=== PATIENT | female | born 1975 | race African-American/Black ===

== ENCOUNTER 2022-06-06 05:27 | Emergency (ER) | payer OTHER, SELFPAY ==
[2022-06-06 05:34] VITALS: BP 152/98; PULSE 107; RESP 20; TEMP 36.1; O2SAT 97
--- NOTE | 2022-06-06 05:54 | ED.GENADULT ---
HPI - General Adult General Chief complaint: Upper Respiratory Infection Stated complaint: upper resp Time Seen by Provider: 06/06/22 05:46 History of Present Illness HPI narrative: This is a 46-year-old female presenting ED with chief complaint of URI symptoms. Started 3 days ago she started to have cough congestion and has recently developed right-sided ear pain and fullness. She has a sick child at home. She denies fever but has had some nausea and vomiting. She has been using Mucinex TheraFlu and nasal spray with some relief. Patient is vaccinated against COVID and flu. Related Data Allergies Allergy/AdvReac Type Severity Reaction Status Date / Time diclofenac Allergy Unknown Unknown Verified 07/25/20 10:26 tioconazole Allergy Unknown Unknown Verified 07/25/20 10:26 tomato Allergy Unknown Unknown Verified 07/25/20 10:26 miconazole AdvReac Unknown UNKNOWN Verified 07/25/20 10:26 [facility] Past Medical History Medical History Depression Hypertension Surgical History Surgical History S/P bilateral breast reduction Family History Family History Mother Hypertension Family history of elevated blood lipids Social History Social History Smoking status: Never smoker Second hand tobacco smoke exposure: No Alcohol intake: never Exam Narrative: APPEARANCE: patient is handling 2 sick children during the interview. She appears stressed. Head: Tympanic membrane on the right is bulging with purulent effusion. Left has serous effusion. EYES: EOMI, NOSE: Atraumatic NECK: Trachea midline RESPIRATORY: No increased rate of breathing, CTAB CARDIOVASCULAR: tachycardic ABDOMINAL: Non-distended MUSCULOSKELETAl: No obvious deformities NEURO: Alert. Moving 4/4 extremities SKIN:: Warm, dry. Normal color PSYCHIATRIC: Normal affect Course Vital Signs Vital signs: Vital Signs Temperature 97.0 F L 06/06/22 05:34 Pulse Rate 107 H 06/06/22 05:34 Respiratory Rate 20 06/06/22 05:34 Blood Pressure 152/98 H 06/06/22 05:34 Pulse Oximetry 97 03/17/23 05:34 Oxygen Delivery Room Air 06/06/22 05:34 Temperature 97.0 F L 06/06/22 05:34 Pulse Rate 107 H 06/06/22 05:34 Respiratory Rate 20 06/06/22 05:34 Blood Pressure 152/98 H 06/06/22 05:34 Pulse Oximetry 97 06/06/22 05:34 Oxygen Delivery Room Air 06/06/22 05:34 Medical Decision Making MDM Narrative Medical decision making narrative: -Presentation: 46-year-old female presenting with URI symptoms and right-sided ear pain -DDX includes but is not limited to: viral syndrome, acute otitis media, bullous myringitis -Co-morbidities complicating care: hypertension -Social determinants of health: 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 Dx tests considered but not ordered: None -Procedures: none -Interventions: Motrin, Tylenol, Augmentin -Shared decision making / Disposition: patient has a purulent effusion on the right side. She will be treated for acute otitis media. She can follow up with primary care physician. -RX Augmentin, Zofran, Robitussin Vital Signs Vital Signs: Vital Signs Temperature 97.0 F L 06/06/22 05:34 Pulse Rate 107 H 06/06/22 05:34 Respiratory Rate 20 06/06/22 05:34 Blood Pressure 152/98 H 06/06/22 05:34 Pulse Oximetry 97 06/06/22 05:34 Oxygen Delivery Room Air 06/06/22 05:34 Temperature 97.0 F L 06/06/22 05:34 Pulse Rate 107 H 06/06/22 05:34 Respiratory Rate 20 06/06/22 05:34 Blood Pressure 152/98 H 06/06/22 0
[2022-06-06 06:45] VITALS: BP 131/69; PULSE 84; RESP 18; TEMP 37.2; O2SAT 99
[2022-06-06] MEDS: ONDANSETRON HCL ODT 4 MG TABLET PO (06:45)
[2022-06-06] MEDS: ACETAMINOPHEN 500 MG TABLET 1000 MG PO (06:45)
[2022-06-06] MEDS: guaiFENesin/DEXTROMETHORPHAN 10 ML UDC PO (06:45)
[2022-06-06 06:50] LABS: Influenza A QL RT-PCR Negative (Negative); Influenza B QL RT-PCR Negative (Negative); RSV RNA, RT-PCR Negative (Negative); SARS-CoV-2 RNA PCR Negative
== END 2022-06-06 06:46 | disposition home or self-care (01) ==
PROVIDERS: Emergency Provider Emergency Medicine; PCP Physician Assistant
DX: H66.91 Otitis media, unspecified, right ear (principal); Z20.822 Contact with and (suspected) exposure to COVID-19; I10 Essential (primary) hypertension; F32.A Depression, unspecified
CPT/HCPCS: 87637; 99283; A9270

== ENCOUNTER 2022-08-15 00:33 | Day surgery (SDC) | payer OTHER, SELFPAY ==
[2022-07-29 15:08] VITALS: BMI 40.3
[2022-08-15 09:48] VITALS: BP 153/92; PULSE 69; RESP 16; TEMP 36.1; O2SAT 100
[2022-08-15] MEDS: LACTATED RINGERS 1,000 ML 150 ML IV CONT (10:03)
--- NOTE | 2022-08-15 10:14 | PM.HPGS ---
History of Present Illness History of Present Illness Consent: Risks, benefits, and alternatives have been discussed and questions answered. Patient agrees to proceed with procedure. Chief complaint: neoplasm screening Narrative: Jeanine Hebert is a 46 year old female Presents for screening colonoscopy. Patient's current weight appetite and bowel movements are normal. Patient denies abdominal pain. She has had no bleeding. Family history noncontributory. Patient reports in the past was told she was low in iron. labs in our records reveal her hemoglobin to be adequate stable. Review of Systems Review of Systems: Review of systems noncontributory. [facility] Past Medical History Medical History Depression Hypertension Surgical History Surgical History History of section S/P bilateral breast reduction Family History Family History Mother Hypertension Family history of elevated blood lipids Social History Social History Smoking status: Never smoker Second hand tobacco smoke exposure: No Alcohol intake: never Substance use: never Substance use type: does not use Lack of Transportation: No Lack of Food: Never True Current Housing: I Have Housing Concerned About Future Housing: No Difficulty Paying Gas/Electric Bills: No Difficulty Paying for Meds: No Currently Unemployed: No Education: High School Diploma/GED Difficulty w/ Childcare or Family Care: No Living arrangements: with family Spiritual care concerns: No Meds Home Medications and Allergies Home Medications Medication Instructions Recorded Confirmed Type ezaybhu-tzvkwhjkuuomk-pockgbfi 250 1 tablet PO Q4-6H PRN migraines 06/12/22 08/15/22 History mg-250 mg-65 mg tablet (Excedrin Migraine) escitalopram oxalate 10 mg tablet 10 mg PO DAILY 06/12/22 08/15/22 History fluticasone propionate 50 1 spray intranasal DAILY 06/12/22 08/15/22 History mcg/actuation nasal spray,suspension (Allergy Relief (fluticasone)) levocetirizine 5 mg tablet 5 mg PO DAILY 06/12/22 08/15/22 History omeprazole 10 mg capsule,delayed 10 mg PO DAILY 06/12/22 08/15/22 History release prenat.vits,karley,yjq-yvex-orbmy 1 tablet PO DAILY 06/12/22 08/15/22 History triamcinolone acetonide 0.5 % 1 applic topical DAILY 06/12/22 08/15/22 History topical cream vitamin B12 2,500 mcg-folic acid 1 tablet PO DAILY 06/12/22 08/15/22 History 400 mcg disintegrating tablet amlodipine 5 mg tablet 5 mg PO DAILY 07/29/22 08/15/22 History bupropion HCl 150 mg 24 hr tablet, 150 mg PO DAILY 07/29/22 08/15/22 History extended release fluconazole 150 mg tablet 150 mg PO ONCE PRN vaginitis 07/29/22 08/15/22 History (Diflucan) Allergies Allergy/AdvReac Type Severity Reaction Status Date / Time diclofenac Allergy Unknown Unknown Verified 08/15/22 09:45 tioconazole Allergy Unknown Unknown Verified 08/15/22 09:45 tomato Allergy Unknown Unknown Verified 08/15/22 09:45 miconazole AdvReac Unknown UNKNOWN Verified 08/15/22 09:45 Vital Signs Vital Signs - 24 hr 08/15/22 09:48 Temperature 97.0 F L Pulse Rate 69 Respiratory Rate 16 Blood Pressure 153/92 H Pulse Oximetry 100 Oxygen Delivery Room Air Exam Narrative: Physical exam reveals patient to be alert. Vital signs stable. HEENT exam is unremarkable. Patient is anicteric. Lungs are clear to auscultation and percussion. Heart is without murmur or extra sounds. Abdomen bowel sounds present soft nontender with no organomegaly. Digital external rectal exam is normal.
--- NOTE | 2022-08-15 10:58 | WPDANESEPPF ---
Anes - Initial Pre Proc Eval Procedure: Operation Date: 08/15/22 10:30 Proposed Procedures p Screening Colonoscopy - Alonso Mathur MD Date/Time: 08/15/22 10:58 Surgeon: Alonso Mathur MD Pre Op Diagnosis: neoplasm screening Patient Data Age: 46 Gender: F Height: 1.7 m Weight: 116.1 kg Last Vital Signs Temp 97.0 F L 08/15/22 09:48 Pulse 69 08/15/22 09:48 Resp 16 08/15/22 09:48 BP 153/92 H 08/15/22 09:48 Pulse Ox 100 08/15/22 09:48 O2 Del Method Room Air 08/15/22 09:48 Allergies Allergy/AdvReac Type Severity Reaction Status Date / Time diclofenac Allergy Unknown Unknown Verified 08/15/22 09:45 tioconazole Allergy Unknown Unknown Verified 08/15/22 09:45 tomato Allergy Unknown Unknown Verified 08/15/22 09:45 miconazole AdvReac Unknown UNKNOWN Verified 08/15/22 09:45 Home Medications Medication Instructions Recorded Confirmed Type nanjahd-iikuyohreyoix-qxnwvaoh 250 1 tablet PO Q4-6H PRN migraines 06/12/22 08/15/22 History mg-250 mg-65 mg tablet (Excedrin Migraine) escitalopram oxalate 10 mg tablet 10 mg PO DAILY 06/12/22 08/15/22 History fluticasone propionate 50 1 spray intranasal DAILY 06/12/22 08/15/22 History mcg/actuation nasal spray,suspension (Allergy Relief (fluticasone)) levocetirizine 5 mg tablet 5 mg PO DAILY 06/12/22 08/15/22 History omeprazole 10 mg capsule,delayed 10 mg PO DAILY 06/12/22 08/15/22 History release prenat.vits,karley,soh-rtsl-xarlb 1 tablet PO DAILY 06/12/22 08/15/22 History triamcinolone acetonide 0.5 % 1 applic topical DAILY 06/12/22 08/15/22 History topical cream vitamin B12 2,500 mcg-folic acid 1 tablet PO DAILY 06/12/22 08/15/22 History 400 mcg disintegrating tablet amlodipine 5 mg tablet 5 mg PO DAILY 07/29/22 08/15/22 History bupropion HCl 150 mg 24 hr tablet, 150 mg PO DAILY 07/29/22 08/15/22 History extended release fluconazole 150 mg tablet 150 mg PO ONCE PRN vaginitis 07/29/22 08/15/22 History (Diflucan) Patient hx anesthesia problems: none Family hx anesthesia problems: none Results Review: All pre-operative results and documents have been reviewed as part of the pre-operative evaluation. PMFSH Past Medical History Medical History Depression Hypertension Surgical History Surgical History History of section S/P bilateral breast reduction Family History Family History Mother Hypertension Family history of elevated blood lipids Social History Social History Smoking status: Never smoker Second hand tobacco smoke exposure: No Alcohol intake: never Substance use: never Substance use type: does not use Lack of Transportation: No Lack of Food: Never True Current Housing: I Have Housing Concerned About Future Housing: No Difficulty Paying Gas/Electric Bills: No Difficulty Paying for Meds: No Currently Unemployed: No Education: High School Diploma/GED Difficulty w/ Childcare or Family Care: No Living arrangements: with family Spiritual care concerns: No Anes - Eval Final PreProcedure Day of Procedure 08/15/22 10:58 Patient weight: morbidly obese Heart: regular rate and rhythm Lungs: clear to auscultation Airway: Mallampati scale class III Neurological: alert and oriented Last oral intake: >/= 8 hours ASA classification: III Emergent: no Anesthetic plan: proceed Anesthesia type and monitoring: general GIVS and standard monitoring Results Review: All pre-operative results and documents have been reviewed as part of the pre-operative evaluation. Informed Consent: The patient's anesthetic plan and its attendant risks and benefits were discussed with the patient/family/POA. Questions were solicited and answers provided to
[2022-08-15 11:31] VITALS: BP 137/80; PULSE 63; RESP 21; O2SAT 100
[2022-08-15 11:41] VITALS: BP 133/85; PULSE 61; RESP 17; O2SAT 100
[2022-08-15 11:51] VITALS: BP 149/95; PULSE 60; RESP 20; O2SAT 100
== END 2022-08-15 12:01 | disposition home or self-care (01) ==
PROVIDERS: PCP Physician Assistant; Visit Provider Internal Medicine Gastroenterology
PROC: 0DJD8ZZ Inspection of Lower Intestinal Tract, Via Natural or Artificial Opening Endoscopic (ICD-10-PCS; CPT 45378; principal; 2022-08-15 10:30)
DX: Z12.11 Encounter for screening for malignant neoplasm of colon (principal); K64.8 Other hemorrhoids; K57.30 Diverticulosis of large intestine without perforation or abscess without bleeding; I10 Essential (primary) hypertension
CPT/HCPCS: 45378; J2001; J2704; J7120

== ENCOUNTER 2024-01-18 09:59 | Outpatient (CLI) | payer OTHER, SELFPAY ==
--- NOTE | ~2024-01-18 | US_ITS ---
US pelvic complete w TV Ordering provider: Rogerio Chávez MD History: . N85.2 - Hypertrophy of uterus . Comparison: None. Technique:Transabdominal and endovaginal ultrasound of the pelvis (Doppler ultrasound interrogation techniques used as needed for this exam.) FINDINGS: CERVIX: Nabothian cyst. No UTERUS: Measures 13x 6.6x 6.4 cm in length which is within normal limits and is anteverted. Multiple fibroids with the largest measures 3.3 x 3.4 x 3.5 cm. Another one is noted measuring 2.9 x 1.7 x 3 cm. ENDOMETRIUM: Normal in thickness measuring 13 mm. No endometrial masses, cysts or fluid. CUL DE SAC: Minimal free fluid. RIGHT OVARY: Normal in size measuring 1.7x 2x 1.5 cm. Normal echotexture. Doppler vascular flow prese nt. LEFT OVARY: Normal in size measuring 2.7x 2x 2.8 cm. Normal echotexture. Doppler vascular flow presen t. ADNEXA: Normal. No mass. IMPRESSION: Multiple fibroids. Minimal free fluid in the cul-de-sac. Otherwise, normal pelvic ultrasound. Reviewed, dictated and finalized at location A. IMPRESSION: Multiple fibroids. Minimal free fluid in the cul-de-sac. Otherwise, normal pelv ic ultrasound.
== END 2024-01-18 10:00 | disposition home or self-care (01) ==
LOC: ANHIMG 10:00
PROVIDERS: PCP Physician Assistant; Visit Provider Obstetrics & Gynecology
DX: D25.9 Leiomyoma of uterus, unspecified (principal); N85.2 Hypertrophy of uterus
CPT/HCPCS: 76830; 76856

== ENCOUNTER 2024-05-18 00:04 | Day surgery (SDC) | payer OTHER, SELFPAY ==
--- NOTE | 2024-05-09 08:56 | PC.NURSE ---
Addendum entered by Taylor Hodge RN 05/09/24 08:59: Telephone instructions given to ___Jeanine and asked if any additional questions and then verbalized understanding. Original Note: Report to the Outpatient Waiting Room, entrance under the green pavilion located off [facility], at time _0615 on date __05/18/24 . Planned Procedure Time: .? Time changes happen often and if your time is changed the preop area will call you the afternoon before. - You and your visitor will be asked to self-screen and do not enter if you have any COVID symptoms. Please call surgeon if you need to reschedule. - A mask is optional within the hospital at this time. Patients may have clear liquids (water, carbonated beverages, clear teas, apple juice) until 3 hours prior to surgery with a maximum of 20 ounces. - No food from midnight until time of surgery and no smoking, or chewing tobacco (or any form of nicotine). No chewing gum, candy or mints. - Infants may have breast milk until 4 hours before surgery, infant formula 6 hours prior to surgery. - Children will be allowed to drink immediately following surgery.? If applicable, please bring a bottle or sippy cup to assist with drinking. Juice, water, soda, and popsicles are readily available.? For infants on formula, please bring formula the day of surgery.? Pacifiers are allowed. Take only the following medications with a SIP of water on the morning of surgery: __Amlodipine, Bupropion, and Antibiotics DO NOT STOP ANY OF YOUR OTHER PRESCRIPTION MEDICATIONS PRIOR TO SURGERY EXCEPT THE FOLLOWING Hold all vitamins and supplements for 3 days per anesthesiologist. Please no make-up, nail thai, hairspray, perfume, deodorant, or body powder the day of surgery.? No jewelry (including any body piercings) or valuables the day of surgery, leave them at home.? Please take a shower or bath the night before, or the morning of, surgery with an antibacterial soap.? Wear comfortable, loose fitting clothing.? Children are encouraged to wear pajamas. - Jewelry must be removed prior to entering the operating room.? Rings and piercings that are not removed may be cut off. - The hospital will not accept responsibility for valuables.? - Please leave all valuables, including medications, at home the day of surgery. If you are going home after surgery, a licensed dedicated truck driver must drive you home.? - NO public transportation without another adult if you receive anesthesia. - We recommend that an adult stay with you for 24 hours following discharge. - We also recommend that you do not drive, make important decision, drink alcoholic beverages, or take any drugs that were not prescribed by your health care provider for at least 24 hours after your discharge time. For Pediatric surgeries, we recommend two adults accompany the child home. Follow any additional instructions given to you from your surgeon. Telephone instructions given to and asked if any additional questions and then verbalized understanding. Patient advised to call surgeon office or pre surgery nurse liaison [phone] if any additional questions.
[2024-05-09 09:01] VITALS: BMI 41.6
--- OUTSIDE RECORDS SUMMARY | 2024-05-18 00:10 | XMS_ITS | Clinical Summary ---
Author Organization [facility] Address [address] [place] [address] Care Team Providers Care Seat Nailer Name Role Phone Monico Santana MD Unavailable [phone] Neelima Head Primary Care Provider [phone] Allergies Active Allergy Reactions Criticality Noted Date Comments Tioconazole Swelling Medium 10/23/2017 Vaginal swelling. Tomato Hives,Swelling Medium Medications acetaminophen-asp irin-caffeine (EXCEDRIN MIGRAINE) 250-250-65 mg per tablet Take 1 tablet by mouth every 6 (six) hours as needed Active omeprazole (PriLOSEC) 40 mg capsule Take 1 capsule (40 mg total) by mouth daily 30 capsule 6 Active Additional Information Patient not taking.Reported on 05/05/2024 fluticasone propionate (FLONASE) 50 mcg/actuation nasal spray Administer 1 spray into each nostril daily 1 each 6 Active ergocalciferol (VITAMIN D) 50,000 unit capsule Take 1 capsule (50,000 Units total) by mouth 3 (three) times a week 12 capsule 6 Active Additional Information Patient not taking.Reported on 05/05/2024 ferrous bis-glycinate chelate (IRON BISGLYCINATE CHELATE ORAL) Take 25 mg by mouth daily Active cyanocobalamin (Vitamin B-12) 1,000 mcg tabletIndications :Prevention of Vitamin B12 Deficiency Take 2 tablets (2,000 mcg total) by mouth daily 025 2025 Active amLODIPine (NORVASC) 5 mg tablet Take 1 tablet (5 mg total) by mouth every morning 90 tablet 2 Active escitalopram (LEXAPRO) 20 mg tablet Take 1 tablet (20 mg total) by mouth daily 90 tablet 2 Active traZODone (DESYREL) 50 mg tablet Take 1 tablet (50 mg total) by mouth nightly 90 tablet 2 Active buPROPion XL (WELLBUTRIN XL) 300 mg 24 hr tablet Take 1 tablet (300 mg total) by mouth every morning 90 tablet 2 Active ondansetron ODT (ZOFRAN-ODT) 4 mg disintegrating tablet Take 1 tablet (4 mg total) by mouth every 8 (eight) hours as needed for nausea or vomiting 20 tablet 1 Active triamcinolone (KENALOG) 0.025 % cream Apply topically 2 (two) times a day as needed for rash 80 g Active ondansetron ODT (ZOFRAN-ODT) 4 mg disintegrating tablet Take 1 tablet (4 mg total) by mouth every 8 (eight) hours as needed for nausea or vomiting 2024 Discontinued(R eorder) mv,Ca,min-iron ddtd-UF-skdilk 1 mg iron-66.7 mcg-1,000 mcg tablet Take 1 each by mouth daily 2024 Discontinued vit 60-pvbq-[id number]-dha 27mg iron- 800 mcg-250 mg capsule Take 1 each by mouth 2024 Discontinued triamcinolone (KENALOG) 0.025 % cream Apply 1 application topically 2 (two) times a day as needed 2024 Discontinued(R eorder) levocetirizine (XYZAL) 5 mg tablet Take 1 tablet (5 mg total) by mouth daily 30 tablet 2 023 2024 Discontinued Lactobacillus reuteri 100 million cell tablet,chewable Take by mouth 2024 Discontinued amLODIPine (NORVASC) 5 mg tablet Take 1 tablet (5 mg total) by mouth every morning 30 tablet 3 023 2024 Discontinued(R eorder) cyanocobalamin (Vitamin B-12) 1,000 mcg tabletIndications :Prevention of Vitamin B12 Deficiency Take 2 tablets (2,000 mcg total) by mouth daily 60 tablet 3 023 2024 Discontinued(R eorder) escitalopram (LEXAPRO) 20 mg tablet Take 1 tablet (20 mg total) by mouth daily 30 tablet 6 024 2024 Discontinued(R eorder) buPROPion XL (WELLBUTRIN XL) 300 mg 24 hr tablet TAKE 1 TABLET(300 MG) BY MOUTH EVERY MORNING 30 tablet 6 024 2024 Discontinued(R eorder) traZODone (DESYREL) 50 mg tablet TAKE 1 TABLET(50 MG) BY MOUTH EVERY NIGHT NEEDED FOR SLEEP 30 tablet 6 024 2024 Discontinued(R eorder) fluconazole (DIFLUCAN) 150 mg tabletIndications :Yeast infection Take one tab now. Repeat in 7 days if symptoms persist. 2 tablet 025 2024 Discontinued(T herapy completed) Active Problems Problem Noted Date Diagnosed Date LANIE on CPAP 09/15/2023 Assessment & Plan (05/14/2024 11:47 PM CULINARY ART TEACHER): CPAP has been ordered but patient is having difficulty tolerating it. Strongly encouraged her to follow back up with Dr. Franco's office to see if there are alternative masks and or options for treatment. Reviewed the long-term sequelae of untreated or undertreated LANIE Assessment & Plan (09/15/2023 2:02 PM CDT): Patient saw Dr. Franco and is now diagnosed with sleep apnea CPAP has been ordered and she is waiting for delivery. Controlled type 2 diabetes mamta russo without complication, without long-term current use of insulin ([facility]) 02/28/2023 Assessment & Plan (05/14/2024 11:46 PM CULINARY ART TEACHER): Stressed importance of continued A1c control to minimize the longitudinal float operator effects of diabetes. Bring accuchecks to office when instructed to do so. Check A1c about every 3-6 months. Take medication as prescribed. Get annual eye exam. Encouraged ABRAHAN/Statin if able to tolerate. Encouraged weight control and encouraged diabetic diet and exercise. She continues to work hard with diet control. A1c is tightly controlled at 5.5 Assessment & Plan (09/15/2023 2:04 PM CDT): Stressed importance of continued A1c control to minimize the assisted effects of diabetes. Bring accuchecks to office when instructed to do so. Check A1c about every 3-6 months. Take medication as prescribed. Get annual eye exam. Encouraged ABRAHAN/Statin if able to tolerate. Encouraged weight control and encouraged diabetic diet and exercise. Currently diet controlled Assessment & Plan (05/31/2023 5:52 PM CDT): Stressed importance of continued A1c control to minimize the assisted effects of diabetes. Bring accuchecks to office when instructed to do so. Check A1c about every 3-6 months. Take medication as prescribed. Get annual eye exam. Encouraged ABRAHAN/Statin if able to tolerate. Encouraged weight control and encouraged diabetic diet and exercise. Continue diet controlled. Assessment & Plan (02/28/2023 6:56 PM CULINARY ART TEACHER): Stressed importance of continued A1c control to minimize the longitudinal float operator effects of diabetes. Bring accuchecks to office when instructed to do so. Check A1c about every 3-6 months. Take medication as prescribed. Get annual eye exam. Encouraged ABRAHAN/Statin if able to tolerate. Encouraged weight control and encouraged diabetic diet and exercise. Currently diet controlled his A1c has been running 6.5-6.6. Due to recheck labs Gastroesophageal reflux disease without esophagi tis 11/05/2022 Assessment & Plan (05/14/2024 11:44 PM CULINARY ART TEACHER): Continue PPI p.r.n. She states she really needs it Assessment & Plan (09/15/2023 2:03 PM CDT): Continue omeprazole p.r.n. as symptoms have improved Assessment & Plan (05/31/2023 5:52 PM CDT): Continue with omeprazole Assessment & Plan (11/05/2022 8:02 AM CDT): Discussed GERD at length including anatomy, behavioral changes (anti-reflux maneuvers, avoid acidic foods like oranges and tomatoes., avoidance of spicy foods, avoid eating 3-4 hours before bed, elevation of the head of the bed), weight loss and medication options for treatment. Followup if sxs worsen or has hematochezia or hematemeis. Increase omeprazole to 40mg daily. Followup in 6-8 weeks to reassess. Instructed patient if she would have chest pain especially if related to activity or radiating into her jaw or down her arm she is to go to the ER immediately for evaluation. She is in agreement with the plan B12 deficiency 07/29/2022 Assessment & Plan (05/14/2024 11:43 PM CULINARY ART TEACHER): Supplement Assessment & Plan (05/31/2023 5:55 PM CDT): Continue supplementation Assessment & Plan (02/28/2023 6:49 PM CULINARY ART TEACHER): Supplement. Check labs Assessment & Plan (07/29/2022 10:32 PM CDT): Continue supplementation Seasonal allergies 07/29/2022 Assessment & Plan (07/29/2022 10:32 PM CDT): Patient has allergies are responding well with the Xyzal. Refills to pharmacy Breast cancer screening by mammogram 07/06/2022 Assessment & Plan (05/14/2024 11:43 PM CULINARY ART TEACHER): Mammogram order provided Assessment & Plan (05/31/2023 5:54 PM CDT): Mammogram order provided Assessment & Plan (07/06/2022 9:42 AM CDT): Mammogram order provided Headache causing frequent awakening from sleep 0 11/03/2020 Assessment & Plan (11/03/2020 11:06 PM CDT): New onset CAMACHO that is awakening her from rest. Recommend CT head for further evaluation. May try excedrin migraine. IF she experiences stroke type sxs she is to go to the ER> She voices understanding. Fatigue 11/03/2020 Assessment & Plan (05/31/2023 5:53 PM CDT): Probably multifactorial. Check labs and followup to re-evaluate Assessment & Plan (02/28/2023 6:49 PM CULINARY ART TEACHER): Probably multifactorial. Check labs and followup to re-evaluate Assessment & Plan (07/06/2022 9:41 AM CDT): Probably multifactorial. Check labs and followup to re-evaluate Assessment & Plan (11/03/2020 11:07 PM CDT): Probably multifactorial. Check labs and followup to re-evaluate Morbid obesity with BMI of 40.0-44.9, adult 10/21 Assessment & Plan (05/05/2024 7:47 AM CULINARY ART TEACHER): Discussed the patient's BMI. The BMI is above average. BMI management plan is completed. BMI Follow-up includes: nutrition counseling, exercise counseling and education provided. Assessment & Plan (09/15/2023 2:03 PM CDT): Discussed the patient's BMI. The BMI is above average. BMI management plan is completed. BMI Follow-up includes: nutrition counseling, exercise counseling and education provided. Assessment & Plan (05/31/2023 5:53 PM CDT): Discussed the patient's BMI. The BMI is above average. BMI management plan is completed. BMI Follow-up includes: nutrition counseling, exercise counseling and education provided. Assessment & Plan (02/18/2023 8:36 AM CULINARY ART TEACHER): Discussed the patient's BMI. The BMI is above average. BMI management plan is completed. BMI Follow-up includes: nutrition counseling, exercise counseling and education provided. Assessment & Plan (11/05/2022 8:03 AM CDT): Discussed the patient's BMI. The BMI is above average. BMI management plan is completed. BMI Follow-up includes: nutrition counseling, exercise counseling and education provided. Assessment & Plan (10/04/2022 1:20 PM CDT): Discussed the patient's BMI. The BMI is above average. BMI management plan is completed. BMI Follow-up includes: nutrition counseling, exercise counseling and education provided. Assessment & Plan (07/29/2022 10:30 PM CDT): Discussed the patient's BMI. The BMI is above average. BMI management plan is completed. BMI Follow-up includes: nutrition counseling, exercise counseling and education provided. Assessment & Plan (07/06/2022 9:41 AM CDT): Discussed the patient's BMI. The BMI is above average. BMI management plan is completed. BMI Follow-up includes: nutrition counseling, exercise counseling and education provided. Assessment & Plan (10/30/2020 10:31 AM CDT): Obesity is unchanged. Discussed the patient's BMI. The BMI is above average. BMI management plan is completed. BMI Follow-up includes: nutrition counseling, exercise counseling and education provided. 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 Continue Wellbutrin XL 300 Lexapro 20 and trazodone for sleep. 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 Continue Wellbutrin XL 300 Lexapro 20. Still encouraged counseling. She is seeking assistance from other directions including friends and other support systems. No suicidal or homicidal thoughts. May call at any time for assistance Assessment & Plan (05/31/2023 5:52 PM CDT): Patient's symptoms are stable but probably not fully controlled. Continue Wellbutrin XL 300 Lexapro 20. Strongly encouraged counseling. She is started the EAP with [facility] and seeing him about every 5th week. Advised may need more than that but this is a great start. Assessment & Plan (02/28/2023 6:49 PM CULINARY ART TEACHER): Stable with Wellbutrin XL 300 Lexapro 20. Discussed making changes to meds versus counseling and strongly encouraged counseling. Assessment & Plan (11/05/2022 8:03 AM CDT): Improvement with the Wellbutrin XL 300 Lexapro 20 but still feels down. Strongly encouraged counseling. Provided names of counselors through Psychology today. Encouraged her to call [facility] to get a list of counselors. Also discussed referral to psychiatrist for further evaluation but she declines at this time Assessment & Plan (10/04/2022 1:19 PM CDT): Patient is noting improvement of symptoms but they are not fully controlled. Would like to continue Lexapro 20. Increase Wellbutrin XL to 300 mg. She may take 2 of her 150 mg together until the supplies exhausted then the new prescription will be for 1 of the 300 mg tablets. Encouraged to continue with counseling. Follow-up in 6-8 weeks to reassess or sooner for any other problems or concerns Assessment & Plan (07/29/2022 10:30 PM CDT): Patient's symptoms are beginning to respond to the Wellbutrin and Lexapro. Willing to increase Lexapro to 20 continue Wellbutrin XL 150 reassess in 4-6 weeks. Continue with counseling. If she has any increased symptoms suicidal or homicidal thoughts she is to call immediately. She is in agreement with the plan Assessment & Plan (11/03/2020 11:02 PM CDT): Continue Wellbutrin XL300 and lexapro 20 Continue counseling. Assessment & Plan (10/21/2020 8:01 PM CDT): Continue Wellbutrin Xl 300 and lexapro 20mg. Continue with counseling. Discussed M[employer] and provided web site for more information/support Assessment & Plan (08/16/2020 9:29 AM CDT): Continue Lexapro 20 and Wellbutrin XL 300. Strongly encouraged her to continue with regular counseling. Discuss other things like MOPS programs are other ways for her to meet mom's and also get out of the house. She will investigate. Assessment & Plan (05/27/2020 7:20 PM CULINARY ART TEACHER): Decrease Lexapro to 10mg and start Wellbutrin XL 150 Reviewed risks, benefit, alternatives, side effects and proper use. F.u in a few weeks to reassess. Call if has suicidal or homicidal thoughts. Still remain off work. Assessment & Plan (05/27/2020 1:01 PM CULINARY ART TEACHER): Significant depression/greif that makes it difficult to care for herself and her children. Recommend remain off work Increase Lexapro to 20mg. Take TWO 10mg tabs until gone then will send in new Rx for 20mg tabs. Continue counseling/EAP. Following in a few weeks to reasses. Denies suicidal or homicial thoughts. Assessment & Plan (05/08/2020 10:42 PM CULINARY ART TEACHER): Depression/grief. Continue counseling and support group. Continue lexapro 10mg. Increase the Wellbutrin to 300mg Call if has increased sxs/suicidal thoughts. Followup 6-8 weeks. Assessment & Plan (03/09/2020 11:07 PM CULINARY ART TEACHER): Patient is experiencing significant grief, depression and possible PTSD from experience at work. She is currently in EAP. She has provided written permission for Ms. Kan and I to discuss her care. Discussed medication and will start lexapro. Reviewed risks, benefit, alternatives, side effects and proper use. Continue counseling. Check labs. Call if has any suicidal or homicidal thoughts. She denies any current thoughts. Will continue to have her off work for at least 1/6 which is the date I will see her back in the office to reassess how the lexapro is doing and re-evaluate her RTW status. She states today her goal is to return to work when able. Personal history of DVT (deep vein thrombosis) 0 09/08/2018 Overview (12/15/2018): Reports left upper extremity DVT in 2013 in the setting of a port which was placed for iron transfusions. Per her report she has had a negative thrombophilia workup and has never required long-term anticoagulation. Plan: Antepartum surveillance, could consider prophylaxis if additional risk factors Fibroids 04/19/2018 Overview (04/19/2018): Added automatically from request for surgery [id number] Abnormal uterine bleeding (AUB) 10/23/2017 Overview (10/23/2017): Added automatically from request for surgery [id number] Assessment & Plan (05/14/2024 11:31 PM CULINARY ART TEACHER): Patient works with [employer] for her menorrhagia. Planning D and C with ablation on June 14 Urge incontinence of urine 01/13/2017 Abnormal mammogram 10/30/2016 Iron deficiency anemia, unspecified 10/12/2015 Assessment & Plan (05/14/2024 11:31 PM CULINARY ART TEACHER): Patient with history of anemia. Is established with heme Onc Dr. Gage at [facility] She is planning D&C with ablation with creative writing professor on June 14 Assessment & Plan (09/15/2023 2:05 PM CDT): This is a significant, separately identifiable problem that was evaluated and managed on the same day as the wellness exam Patient with history of anemia. Follows with [facility]. She is noticing increased PICA as well as pale conjunctiva. 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 Assessment & Plan (11/05/2022 8:06 AM CDT): Continue per Hematology. Assessment & Plan (03/09/2020 11:03 PM CULINARY ART TEACHER): Managed by ONC Dr. Krishnan Diabetes mellitus with coincident hypertension 0 10/12/2015 Assessment & Plan (05/14/2024 11:31 PM CULINARY ART TEACHER): Stressed importance of continued A1c control to minimize the longitudinal float operator effects of diabetes. Bring accuchecks to office when instructed to do so. Check A1c about every 3-6 months. Take medication as prescribed. Get annual eye exam. Encouraged ABRAHAN/Statin if able to tolerate. Encouraged weight control and encouraged diabetic diet and exercise. Bp is stable/in acceptable range for any co-morbidities. Encouraged to limit sodium intake and exercise for weight control. Continue amlodipine 5 Assessment & Plan (09/15/2023 2:03 PM CDT): Stressed importance of continued A1c control to minimize the assisted effects of diabetes. Bring accuchecks to office when instructed to do so. Check A1c about every 3-6 months. Take medication as prescribed. Get annual eye exam. Encouraged ABRAHAN/Statin if able to tolerate. Encouraged weight control and encouraged diabetic diet and exercise. Bp is stable/in acceptable range for any co-morbidities. Encouraged to limit sodium intake and exercise for weight control. Diabetes is diet controlled. Due to recheck labs. Continue amlodipine 5 Assessment & Plan (05/31/2023 5:53 PM CDT): Bp is stable/in acceptable range for any co-morbidities. Encouraged to limit sodium intake and exercise for weight control. Continue amlodipine 5 Assessment & Plan (02/28/2023 6:49 PM CULINARY ART TEACHER): Bp is stable/in acceptable range for any co-morbidities. Encouraged to limit sodium intake and exercise for weight control. Continue amlodipine 5 Assessment & Plan (11/05/2022 8:04 AM CDT): Bp is stable/in acceptable range for any co-morbidities. Encouraged to limit sodium intake and exercise for weight control. Assessment & Plan (10/04/2022 1:22 PM CDT): Bp is stable/in acceptable range for any co-morbidities. Encouraged to limit sodium intake and exercise for weight control. Continue amlodipine 5 continue to monitor readings. 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 If readings are above 120/80 will need to call so we can increase her dose and or add additional product for better control Assessment & Plan (07/29/2022 10:29 PM CDT): Bp is stable/in acceptable range for any co-morbidities. Encouraged to limit sodium intake and exercise for weight control. Continue amlodipine 5 Assessment & Plan (07/06/2022 9:41 AM CDT): Bp is stable/in acceptable range for any co-morbidities. Encouraged to limit sodium intake and exercise for weight control. Continue amlodipine 5 Monitor closely Assessment & Plan (11/03/2020 11:01 PM CDT): Bp is stable/in acceptable range for any co-morbidities. Encouraged to limit sodium intake and exercise for weight control. Continue amlodipine 5mg Assessment & Plan (08/16/2020 9:28 AM CDT): Bp is stable/in acceptable range for any co-morbidities. Encouraged to limit sodium intake and exercise for weight control. Continue amlodipine 5mg. Monitor readings and call if systolic over 140 Assessment & Plan (05/27/2020 1:00 PM CULINARY ART TEACHER): Bp is stable/in acceptable range for any co-morbidities. Encouraged to limit sodium intake and exercise for weight control. Continue amlodipine 5mg Assessment & Plan (03/09/2020 11:03 PM CULINARY ART TEACHER): Bp is stable/in acceptable range for any co-morbidities. Encouraged to limit sodium intake and exercise for weight control. Continue amldipine Resolved Problems Problem Noted Date Diagnosed Date Resolved Date Annual physical exam 09/15/2023 025 Assessment & Plan (09/15/2023 2:08 PM CDT): Encouraged healthy lifestyle, good nutrition and exercise. Encouraged Calcium and Vitamin D and weight bearing exercise for bone health. Reviewed immunizations Reviewed age appropirate screenings. Screening-pulmonary TB 09/15/202305/05 Assessment & Plan (09/15/2023 2:08 PM CDT): Will check [employer] to complete the childcare form Snoring 08/06/2023 09/15/2023 Assessment & Plan (08/06/2023 10:55 AM CDT): The patient presents with snoring, nocturnal and morning headaches and daytime hypersomnia. Per her insurance, I have ordered a home sleep test and she will follow up with me in 3 months. Daytime sleepiness 05/31/2023 Assessment & Plan (05/31/2023 5:55 PM CDT): Patient has experienced daytime sleepiness. Has multiple symptoms regarding the possibility of sleep apnea. Refer to sleep for evaluation BMI 40.0-44.9, adult 02/18/2023 023 BMI 40.0-44.9, adult 02/18/2023 024 Assessment & Plan (02/18/2023 8:37 AM CULINARY ART TEACHER): Discussed the patient's BMI. The BMI is above average. BMI management plan is completed. BMI Follow-up includes: nutrition counseling, exercise counseling and education provided. BMI 40.0-44.9, adult 11/05/2022 023 Assessment & Plan (11/05/2022 7:28 AM CDT): BMI Follow-up includes: Discussed diet and exercising counseling. Insomnia 10/04/2022 09/15/2023 Assessment & Plan (11/05/2022 8:23 AM CDT): Doing well with trazodone 50 HS. Refills available at pharmacy Assessment & Plan (10/04/2022 1:22 PM CDT): Discussed treatment options. Will start trazodone 50 mg 1-3 hours prior to bedtime. Reviewed risks benefits alternatives side effects and proper use. BMI 40.0-44.9, adult 07/17/2022 023 Assessment & Plan (07/17/2022 7:27 AM CDT): BMI Follow-up includes: Discussed diet and exercising counseling. Lipid screening 07/06/2022 09/15/2023 Assessment & Plan (07/06/2022 9:42 AM CDT): Check labs Diabetes mellitus screening 07/06/2022 09/15/2023 Assessment & Plan (07/06/2022 9:42 AM CDT): Check labs Acute frontal sinusitis 07/06/2022 05/0 11/2022 Overview (07/06/2022): Complete antibiotic therapy. Follow-up if symptoms do not fully resolve BMI 40.0-44.9, adult 10/30/2020 023 Assessment & Plan (11/03/2020 11:01 PM CDT): Obesity is unchanged. Discussed the patient's BMI. The BMI is above average. BMI management plan is completed. BMI Follow-up includes: nutrition counseling, exercise counseling and education provided. Other fatigue 03/09/2020 11/03/2020 BMI 40.0-44.9, adult ([facility]) 03/08/2020 05/05/2024 Assessment & Plan (05/05/2024 7:47 AM CULINARY ART TEACHER): Discussed the patient's BMI. The BMI is above average. BMI management plan is completed. BMI Follow-up includes: nutrition counseling, exercise counseling and education provided. Assessment & Plan (03/08/2020 10:33 AM CULINARY ART TEACHER): Obesity is unchanged. Discussed the patient's BMI. The BMI is above average. BMI management plan is completed. BMI Follow-up includes: nutrition counseling, exercise counseling and education provided. Morbid obesity 03/08/2020 09/15/2023 Positive depression screening 03/08/2020 11/03/2020 Assessment & Plan (03/09/2020 11:08 PM CULINARY ART TEACHER): See depression plan Normal labor 03/11/2019 03/21/2019 Overview (03/11/2019): [facility] Visit 03/11/19: Assessment and Plan Jeanine Moseley is a 43 y.o. female at 36w3d who is being admitted for SROM 1. Primary : Admit to L&D. Consents signed and placed in chart. Send CBC/T&S/RPR. 2. FWB: Continuous monitoring. tracing category I 3. ID: HIV negative. GBS pyuria. Membrane Status: spontaneous rupture at 0400 on 03/11/19 4. Indications for UDS: none 5. MOF: Plans to breastfeed. 6. MOC: Desires no birthcontrol 7. Pain management: Will have spinal in OR 8. Post DVT prophylaxis: Patient has the following moderate risk factors: Age>35 and BMI>30. Her post prophylaxis plan is SCDs and early ambulation Plan discussed with Dr. Nielson. Orders to admit to L&D for a primary . care following delivery 03/11/2019 04/22/2019 Overview (03/13/2019): # ID: Afebrile. No signs/symptoms of infection. # Heme: EBL 1100mL. hgb 12.9>8.6>8.7. Pt hemodynamically stable, asymptomatic. # CV/Pulm: Chronic hypertension - Blood pressures well controlled on amlodipine 5mg. Asymptomatic, denies CAMACHO/RUQ pain/vision changes. CBC/CMP wnl, 24h urineP 106. # GI/: Tolerating PO. Voiding spontaneously. # Pain: Controlled with above regimen. # depression: patient with significant low mood post delivery. Had discussed initiation of medication during however patient declined. Still declining meds. SW/PNBH consulted # Post DVT prophylaxis: Patient has the following moderate risk factors: h/o provoked DVT, Age>35 and BMI>30. Her post prophylaxis plan is Prophylactic Lovenox due to presence of 3 or more moderate risk factors # MOC: s/p BTL # MOF: # Disposition: Continue routine care Lower extremity edema 03/07/20192018 Overview (03/07/2019): [facility] VISIT 03/07/2019: VSS. patient reports left lower leg edema. She denies warmth and redness. Denies any pain. Negative homans sign. Patient with h/o DVT, Dopplers ordered. Doppler study negative. Patient reassured Nausea and vomiting during 10/01/2018 04/22/2019 Nausea and vomiting 09/29/2018 10/02/19 Overview (09/29/2018): Continues to be able to eat small amounts though she has lost 4 pounds since the start of this . Prescribed Unisom Continue to monitor with history of uterine myomectomy 9 03/21/2019 Overview (02/09/2019): History of laparoscopic myomectomy by Dr. Bright 12/16/2017 for uterine fibroids Operative report reviewed - Right-sided fundal pedunculated myoma that had partially torsed and was necrotic. Fundal left-sided 5 cm uterine leiomyoma. There was an anterior 1 cm leiomyoma as well as 3 leiomyomas posterior in the lower uterine segment. The note significant dissection specifically in the posterior lower uterine segment. It does not explicitly mention entry into the uterine cavity however most incisions were repaired in 3-4 layers. Previously counseled at length regarding risks Delivery scheduled 03/14/19 at 0930 Twin resulting fro m assisted reproductive technology (ART) 09/08/2018 03/21/2019 Overview (12/07/2018): - Previously counseled [x] echo wnl x2 Dichorionic diamniotic twin in first trimester 09/08/2018 03/21/2019 Overview (01/26/2019): Previously counseled on maternal and risks and implications regarding her twin . Plan: - Continue PNV, folate 1mg, vitamin D 1000 IU , calcium 1000-2500mg and Low dose ASA - Serial growth ultrasounds every 4 weeks- AGA x2 - 2x/weekly testing at 32 weeks- scheduled - for delivery at 36-37 weeks 2/2 myomectomy-- scheduled 03/14/19 at 0930 Chronic hypertension affecting 09/08/2018 03/21/2019 Overview (02/25/2019): - previously counseled - BL: Cr 0.73, AST 13, .9, Plt 294, 24 hr Urine Protein 106 Plan: -Continue Amlodipine 5mg daily, monitor Bps at home -LD ASA -s/p specialized anatomy -s/p EKG -Serial growth ultrasounds- AGA x2 - testing at 32 weeks- scheduled Assessment & Plan (03/04/2019 9:12 AM CULINARY ART TEACHER): Patient has not yet taken her BP medicine today. She denies symptoms of preE. Plans to take her BP meds when she gets back to her car and check her BP. She will call our nurse line if she has a mild range BP. Assessment & Plan (01/26/2019 10:02 AM CULINARY ART TEACHER): Bps well controlled at this time, precautions reviewed Assessment & Plan (01/12/2019 11:11 AM CDT): BP mild range today but patient has not taken her BP medication. Recommend she take her meds and check BP at home. Precautions and parameters reviewed. Denies headaches, visual changes or RUQ pain. Assessment & Plan (10/27/2018 11:13 AM CDT): BP wnl today, reports Bps normal at home Recommend she continue checking Bps regularly Depression affecting 09/08/2018 03/21/2019 Overview (02/11/2019): - Previously counseled, currently not on medication - Initial EPDS 18 was was prescribed zoloft and recommended to follow up with [facility]. She subsequently declined both seeing them and starting the medication. - recommend close monitoring with EPDS screening every trimester and at 2 and 6 weeks . -2T EDPS = 0 -02/11: Starting to feel a little overwhelmed and is ready to not be . Continues to decline P[facility] or meds. Continue to monitor symptoms closely. Assessment & Plan (02/11/2019 1:33 PM CULINARY ART TEACHER): Tearful today in clinic 2/2 frustration with US. We discussed the protocols regarding US and video. She voiced understanding. Discussed patient with Ward Hurtado regarding pt complaints. Long conversation today regarding her mood. We reviewed the importance of lung maturity at this stage and that every day she remains is hopefully one less day the babies will need to grow and mature in the NICU. Voiced understanding and said she felt better following our talk. Assessment & Plan (01/26/2019 10:01 AM CULINARY ART TEACHER): Symptoms well controlled Assessment & Plan (01/12/2019 11:14 AM CDT): Reports feeling anxious about breast feeding. Long conversation about coping with anxiety. Will continue to monitor symptoms closely but overall patient feels like her symptoms have improved significantly as the progresses. Assessment & Plan (11/17/2018 10:14 AM CDT): Mood is stable today Assessment & Plan (10/27/2018 11:15 AM CDT): Tearful in clinic today 2/2 anxiety Addressed medication and PNB[facility] again today and patient continues to decline both Reassurance provided during appointment Denies SI/HI Strict WAC precautions reviewed Reviewed that she can schedule f/u appointment more frequently if it would help with her anxiety Supervision of high-risk pre gnancy, unspecified trimester 09/07/2018 03/21/2019 Overview (02/11/2019): [x] Full [facility] Care Referring Provider: Terri/RODGER [x] Dating Criteria: IVF [x] Labs: Rh [ A+ ], Ab [ neg ], Rubella [ imm ], HIV [ neg ], HepBSAg [ neg ], RPR [ NR ] [x] Genetic Screening: Nuchal translucency wnl, + nasal bone, does not desire further testing. [x] CBC: 12.1/37.1/plt 294; ferritin: 28 [x] Hgb electrophoresis (if indicated) - normal [x] Early 1 hr gtt: 123 [x] GC/CT: neg/neg [x] UCx: less than 100,000 GBS [x] Pap: August 2017 NILM per patient - record requested [x] EPDS 18: [facility] referral placed 09/09 2nd Tri Labs: [x] Anatomy ultrasound [x] CBC - 11.0 g/dL [x] 1hr gtt - 105 mg/dL [x] Flu Shot (Nov-Feb) - given 12/15 [x] Tdap (27-36wks) 3rd Tri Labs: [x] CBC/HIV/RPR- 11.4/35.7 plt 235, HIV neg, RPR NR [x] GBS + pyuria Counselling [x] MOD: C/S scheduled 03/14/19 at 0930 at 36w6d 2/2 h/o myomectomy [x] MOC: s/p bilateral salpingectomy [x] Method of feeding: Breast [x] PP Depression Discussed Polyp of corpus uteri 04/19/20182018 Overview (04/19/2018): Added automatically from request for surgery [id number] Uterine polyp 04/07/2018 09/08/2018 Overview (04/07/2018): Added automatically from request for surgery [id number] Need for prophylactic vaccin ation and inoculation against influenza 02/05/2018 09/08/2018 Morbid obesity with BMI of 4 0.0-44.9, adult (CMS/[facility]) 12/03/2017 10/30/2020 Assessment & Plan (05/27/2020 1:01 PM CULINARY ART TEACHER): Obesity is unchanged. Discussed the patient's BMI. The BMI is above average. BMI management plan is completed. BMI Follow-up includes: nutrition counseling, exercise counseling and education provided. Assessment & Plan (03/08/2020 10:34 AM CULINARY ART TEACHER): Obesity is unchanged. Discussed the patient's BMI. The BMI is above average. BMI management plan is completed. BMI Follow-up includes: nutrition counseling, exercise counseling and education provided. Uterine leiomyoma 10/23/2017 09/08/2018 Overview (10/23/2017): Added automatically from request for surgery [id number] Investigation and testing fo r procreation management 08/09/2017 09/08/2018 Breast pain 10/27/2016 12/03/2017 Bladder spasm 10/16/2016 12/03/2017 Hydrosalpinx 05/18/2016 09/08/2018 History of deep venous thrombosis 10/12/2015 03/09/2020 Encounter for contraceptive management 10/12/2015 12/03/2017 Reported History of Congestive heart failure 6 04/22/2019 Overview (01/26/2019): Patient reports a history of congestive heart failure. Evaluated by Cardiology at [facility] - 06/2016 (Dr. Gonzalez) Echo 2016 normal ventricular size, LVEF 58%, normal diastolic function. 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 Unspecified urinary incontinence 07/29/2013 12/03/2017 Encounters Date Type Department Care Team Description 05/05/2024 7:30 AM CULINARY ART TEACHER Office Visit [facility] Family Medicine [address] [phone] Neelima Head PA Controlled type 2 diabetes mellitus without complication, without long-term current use of insulin (CMS/HCC) ([facility]) (Primary Dx); Gastroesophageal reflux disease without esophagitis; B12 deficiency; Current severe episode of major depressive disorder without psychotic features without prior episode (CMS/HCC) ([facility]); Abnormal uterine bleeding (AUB); Diabetes mellitus with coincident hypertension (HCC); LANIE on CPAP; Iron deficiency anemia, unspecified iron deficiency anemia type; Breast cancer screening by mammogram; Morbid obesity with BMI of 40.0-44.9, adult (HCC) 04/08/2024 8:30 AM CULINARY ART TEACHER Infusion [facility] [address] [place] [phone] Iron deficiency anemia, unspecified iron deficiency anemia type (Primary Dx) 04/05/2024 1:26 PM CULINARY ART TEACHER - 04/05/2024 11:59 PM CULINARY ART TEACHER Hospital Encounter [address] [phone] Controlled type 2 diabetes mellitus without complication, without long-term current use of insulin ([facility]/HCC) ([facility]); Fatigue, unspecified type Discharge Disposition: Discharge to home or self care 04/05/2024 9:45 AM CULINARY ART TEACHER Lab [facility] [address] [place] [phone] Iron deficiency anemia, unspecified iron deficiency anemia type 04/05/2024 9:45 AM CULINARY ART TEACHER Infusion [facility] [address] [place] [phone] 04/05/2024 9:00 AM CULINARY ART TEACHER Office Visit [facility] [address] [place] [phone] Monico Santana MD Iron deficiency anemia, unspecified iron deficiency anemia type (Primary Dx) 04/05/2024 Telephone [facility] [address] [place] [phone] Tiffanie Bledsoe, RN 04/05/2024 Orders Only [facility] [address] [place] [phone] Tiffanie Bledsoe RN 04/05/2024 Orders Only [facility] [address] [place] [phone] Monico Santana MD 04/05/2024 Orders Only [facility] [place] [phone] Tiffanie Bledsoe RN 04/05/2024 Orders Only [facility] [address] [place] [phone] Tiffanie Bledsoe RN 03/28/2024 Orders Only [address] [place] [phone] Neelima Head PA Controlled type 2 diabetes mellitus without complication, without long-term current use of insulin (CMS/HCC) (HCC) (Primary Dx); Fatigue, unspecified type 03/28/2024 Orders Only [address] [place] [phone] Neelima Head PA 03/25/[address] [place] [address] Neelima Head PA Medical Question/Miscellaneo us from Last 3 Months Immunizations Immunization Administration Dates Next Due DTaP 10/14/1982, 0,07/21/1978,01/21,1977 Influenza, Quadrivalent, Wendy l Culture-based MDCK, Antibiotic Free, Intramuscular 12/15/2018 Influenza, Quadrivalent, Spl it, Preservative Free, Intramuscular 01/02/2023,01/26/2020,02/05/2018 Influenza, Trivalent, Preser vative Free, Intramuscular 01/28/2024 Influenza, Unspecified 01/08/2023,01/09/2022 MMR 10/13/1979 MMRV 09/08/2011 OPV 10/14/1982, 0,07/21/1978,01/21,1977 Pfizer SARS-CoV-2 Monovalent Vaccination (12+ Yrs) PURPLE 07/24/2020,07/03/2020 Tdap 01/12/2019 Surgical History Surgery Date Site/Laterality Comments CENTRAL VENOUS CATHETER INSERTION Central IV Line Type Port-A-Cath - (Added by TW Conv), removed 2013, for severe anemia DILATION AND CURETTAGE OF UTERUS MYOMECTOMY 11/21/[address] Bright SALPINGECTOMY 04/23/2018 Bilateral LSC salpingectomy for hydrosalpinx HYSTEROSCOPY W/ POLYPECTOMY COMBINED REDUCTION MAMMAPLASTY W/ ABDOMINOPLASTY 03/23/1998 - 03/22/1999 Bilateral Medical History Medical History Date Comments Hypertension Hypertension H/O blood clots DVT to LUE d/t c lotted port for iron infusion 2014-on aspirin Depression Abnormal uterine bleeding Iron deficiency anemia previousl y on fereheme infusions by Heme-Onc Uterine leiomyoma Congestive heart failure (CM S/HCC) (HCC) worked up, patient denies GERD (gastroesophageal reflux disease) Sesay palsy 2012 Morbid obesity (HCC) BMI 41 Nausea and vomiting 09/29/2018 Continues to be able to eat small amounts though she has lost 4 pounds since the start of this . Prescribed Unisom Continue to monitor Family History Medical History Relation Name Comments Osteoporosis Maternal Grandmother Hypertension Mother Family history of hypertension - (Added by TW Conv) Hypertension Other 1 Hypertension; Diabetes Other 2 Family history of diabetes mellitus - (Added by TW Conv) Hypertension Other 3 Family history of hypertension - Relation: Grandmother (Added by TW Conv) Relation Name Status Comments Father Other Maternal Grandmother Mother Other 1 Other 2 Other 3 Social History Tobacco Use Types Packs/Day Years Used Date Smoking Tobacco: Never Smokeless Tobacco: Never Tobacco Cessation:Counseling Given: Not Answered Alcohol Use Standard Drinks/Week Comments Not Currently 0 (1 standard drink = 0.6 oz pur e alcohol) rarely AUDIT-C Answer Date Recorded Q1: How often do you have a drink containing alcohol? Never 05/05/2024 Q2: How many drinks containi ng alcohol do you have on a typical day when you are drinking? Patient does not drink Q3: How often do you have si x or more drinks on one occasion? Never 05/05/2024 PHQ-2 Answer Date Recorded PHQ-2 Total Score (If total score is 3 or more points, staff should administer the PHQ-9) 0 05/05/2024 Highwood Depression Scale Answer Date Recorded [place] Depression Scale Total 1 04/21/2019 The thought of harming myself has occurred to me . 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- [employer] Not on file Not on file Not on f ile Obstetrics History Para Term AB IAB SAB Ectopic Multiple Livin g Live Births 1 1 0 1 0 0 0 0 1 2 2 Date Outcome GA Total Labor Labor/2nd/3rd Weight Sex Type Anes PTL Rae A1 A5 Name Clin 2018 36w 3d 0h 04m 0h 04m 2.22 kg (4 lb 14.3 oz) M CS-LT ranv Combin ed Spinal /Epidu ral N Livin g 8 9 GRACE VALDOVINOS SON,O NEBOY Cat Abreu MD Complications:None Delivery Location:[facility] Main C ampus ([facility] L AND D PROCEDURE) 2018 36w 3d 0h 02m 0h 02m 2.14 kg (4 lb 11.5 oz) F CS-LT ranv Combin ed Spinal /Epidu ral N Livin g 8 9 GRACE VALDOVINOS SON,T WOGIR LMONI Cat Rios MD Complications:None Delivery Location:[facility] Main C ampus ([facility] L AND D PROCEDURE) Last Filed Vital Signs Vital Sign Reading Time Taken Comments Blood Pressure 136/86 05/05/2024 8:35 AM CULINARY ART TEACHER Pulse 74 05/05/2024 7:44 AM CULINARY ART TEACHER Temperature 36.8 C (98.2 F) 05/05/2024 7:44 AM CULINARY ART TEACHER Respiratory Rate 16 04/08/2024 9:08 AM CULINARY ART TEACHER Oxygen Saturation 99% 05/05/2024 7:44 AM CULINARY ART TEACHER Inhaled Oxygen Concentration - - Weight 120.8 kg (266 lb 6.4 oz) 05/05/2024 7:44 AM CULINARY ART TEACHER Height 168.5 cm (5' 6.34 ) 04/05/2024 9:43 AM CS T Body Mass Index 42.56 04/05/2024 9:43 AM CULINARY ART TEACHER Plan of Treatment Health Maintenance Due Date Last Done Comments Cervical Cancer Screening 1977 Dilated Eye Exam 1977 Foot Exam 1977 Hepatitis B Screening 10/06/1995 Pneumococcal vaccine <65 (1 of 2 - PCV) 1996 Covid-19 Vaccine (3 - season) 2023 07/24/2020, 07/03/2020 Breast Cancer Screening-Mammogram 08/05/2024 08/06/2023, 06/26/2022, 01/02/2018, Additional history exists Regular Well Visit/Exam 18-64 09/14/2024 09/15/2023 Albumin Creatinine Ratio, Urine 09/16/2024 09/17/2023 Hemoglobin A1C 10/03/2024 04/05/2024, 08/22, 07/22/2022, Additional history exists Lipid Panel 04/05/2025 04/05/2024, 08/22, 07/22/2022, Additional history exists eGFR 04/05/2025 04/05/2024, 08/22, 07/22/2022, Additional history exists Depression Screening 05/05/2025 05/05/2024, 09/15/2023, 05/14/2023, Additional history exists DTaP/Tdap/Td Vaccine (6 - Td or Tdap) 01/12/2029 01/12/2019, 10/14/1982, 11/16/1979, Additional history exists Colon Cancer Screening-Colonoscopy 08/15/2032 08/15/2022 Hepatitis C Screening Completed 05/13/2018 Influenza Vaccine Completed 01/28/2024, , 01/02/2023, Additional history exists HPV Vaccines Aged Out No longer eligi ble based on patient's age to complete this topic Medical Devices Implanted Type Area Cone Classifier Tender Device Identifier Shelf Expiration Date Model / Serial / Lot [employer] 4350 Gynecare Interceed 4x3in Absorbable Control Beyond Closure Pelvic - [id number] Implanted:Qty: 1 on 12/16/2017 by Celestino Bright MD at [facility] N/A: Pelvis [employer] [id number] 02/19/2022 [id number] / / [id number] [facility] 4350 Gynecare Interceed 4x3in Absorbable Control Beyond Closure Pelvic - [id number] Implanted:Qty: 1 on 12/16/2017 by Celestino Bright MD at [facility] N/A: Pelvis [employer] [facility] [id number] 02/19/2022 [id number] / / [id number] Procedures Procedure Name Priority Date/Time Associated Diagnosis Comments DIFFERENTIAL AUTO Routine 04/05/2024 10: 06 AM CULINARY ART TEACHER Iron deficiency anemia, unspecified iron deficiency anemia type VITAMIN D 25 HYDROXY Routine 04/05/2024 10:06 AM CULINARY ART TEACHER Iron deficiency anemia, unspecified iron deficiency anemia type FERRITIN Routine 04/05/2024 10:06 AM CULINARY ART TEACHER Iron deficiency anemia, unspecified iron deficiency anemia type IRON PROFILE W/ IBC Routine 04/05/2024 1 0:06 AM CULINARY ART TEACHER Iron deficiency anemia, unspecified iron deficiency anemia type CBC WITH AUTO DIFFERENTIAL Routine 04/05/2024 10:06 AM CULINARY ART TEACHER Iron deficiency anemia, unspecified iron deficiency anemia type EGFR Routine 04/05/2024 9:59 AM CULINARY ART TEACHER Controlled type 2 diabetes mellitus without complication, without long-term current use of insulin (CMS/HCC) (HCC) HEMOGLOBIN A1C Routine 04/05/2024 9:59 AM CULINARY ART TEACHER Controlled type 2 diabetes mellitus without complication, without long-term current use of insulin (CMS/HCC) (HCC) VITAMIN B12 Routine 04/05/2024 9:59 AM CULINARY ART TEACHER Controlled type 2 diabetes mellitus without complication, without long-term current use of insulin (CMS/HCC) (HCC) LIPID PANEL Routine 04/05/2024 9:59 AM CULINARY ART TEACHER Controlled type 2 diabetes mellitus without complication, without long-term current use of insulin (CMS/HCC) (HCC) TSH Routine 04/05/2024 9:59 AM CULINARY ART TEACHER Fatigue, unspecified type COMPREHENSIVE METABOLIC PANEL Routine 04/05/2024 9:59 AM CULINARY ART TEACHER Controlled type 2 diabetes mellitus without complication, without long-term current use of insulin (CMS/HCC) (HCC) ALBUMIN CREATININE RATIO, URINE Routine 09/17/2023 7:21 PM CDT Diabetes mellitus with coincident hypertension (HCC) SCREENING MAMMOGRAM BILATERAL W KRUNAL Schedule Routine, Read Routine (OP Routine) 08/06/2023 8:20 AM CDT Breast cancer screening by mammogram HM COLONOSCOPY Routine 08/15/2022 HEPATITIS C ANTIBODY Routine 05/13/2018 9:48 AM CULINARY ART TEACHER Screening examination for venereal disease from Last 3 Months or Most Recently Relevant to Health Maintenance Results * Differential, auto (04/05/2024 10:06 AM CULINARY ART TEACHER) Neutrophil abs 4.5 1.5 - 6.5 K/cumm Imm gran abs 0.0 0.0 - 0.1 K/cumm [facility] Lymphocyte abs 1.8 0.8 - 3.3 K/cumm [facility] Monocyte abs 0.6 0.2 - 0.8 K/cumm [facility] Eosinophil abs 0.2 0.0 - 0.5 K/cumm [facility] Basophil abs 0.1 0.0 - 0.1 K/cumm [facility] Neutrophil pct 62.1 % [facility] Comment: Interpretive Data Percent cell count reference ranges are not reported, since discordance with absolute values may lead to misinterpretation of CBC data. Current Interpretive Data was last revised on 2017. Imm gran pct 0.4 % [facility] Comment: Interpretive Data Percent cell count reference ranges are not reported, since discordance with absolute values may lead to misinterpretation of CBC data. Current Interpretive Data was last revised on 2017. Lymphocyte pct 25.1 % [facility] Comment: Interpretive Data Percent cell count reference ranges are not reported, since discordance with absolute values may lead to misinterpretation of CBC data. Current Interpretive Data was last revised on 2017. Monocyte pct 8.9 % [facility] Comment: Interpretive Data Percent cell count reference ranges are not reported, since discordance with absolute values may lead to misinterpretation of CBC data. Current Interpretive Data was last revised on 2017. Eosinophil pct 2.8 % [facility] Comment: Interpretive Data Percent cell count reference ranges are not reported, since discordance with absolute values may lead to misinterpretation of CBC data. Current Interpretive Data was last revised on 2017. Basophil pct 0.7 % [facility] Comment: Interpretive Data Percent cell count reference ranges are not reported, since discordance with absolute values may lead to misinterpretation of CBC data. Current Interpretive Data was last revised on 2017. Blood 04/05/2024 10:0 6 AM CULINARY ART TEACHER 04/05/2024 10:06 AM CULINARY ART TEACHER Monico Santana MD LAB BLOOD ORDERABLES Final Resu lt Performing Organization Address City/[facility]/ZIP Co de Phone Number [facility] [address] Department of Last Size [place], [place] [id number] * (ABNORMAL) Iron profile w/ IBC (04/05/2024 10:06 AM CULINARY ART TEACHER) Pathologist [facility] Iron 22(L) 35 - 145 mcg/dL TIBC 366 250 - 400 mcg/dL [facility] Transferrin saturation 6(L) 20 - 50 % [facility] Blood 04/05/2024 10:0 6 AM CULINARY ART TEACHER 04/05/2024 10:18 AM CULINARY ART TEACHER Monico Santana MD LAB BLOOD ORDERABLES Final Resu lt [facility] [address] Department of Last Size [place], [place] [id number] * (ABNORMAL) CBC with auto differential (04/05/2024 10:06 AM CULINARY ART TEACHER) Pathologist [facility] WBC 7.2 3.8 - 9.9 K/cumm Hgb 8.0(L) 11.9 - 15.5 g/dL [facility] Hct 27.7(L) 35.6 - 45.5 % [facility] Plt 220 150 - 400 K/cumm [facility] MPV 9.3 9.1 - 12.[address] [facility] RBC 4.08 3.90 - 5.20 M/cumm [facility] MCV 67.9(L) 81.3 - 96.[address] [facility] MCH 19.6(L) 27.1 - 33.[address] [facility] MCHC 28.9(L) 32.3 - 35.7 g/dL [facility] RDW CV 19.9(H) 11.1 - 14.9 % [facility] RDW SD 47.9 35.7 - 48.[address] [facility] NRBC abs 0.00 0.00 - 0.01 K/cumm [facility] Blood 04/05/2024 10:0 6 AM CULINARY ART TEACHER 04/05/2024 10:06 AM CULINARY ART TEACHER Monico Santana MD LAB BLOOD ORDERABLES Final Resu lt Performing Organization Address City/[facility]/ZIP Co de Phone Number [facility] [address] [facility] [place] [address] * (ABNORMAL) Vitamin D 25 hydroxy (04/05/2024 10:06 AM CULINARY ART TEACHER) [facility] Vitamin D 25-OH 23(L) 30 - 80 ng/mL Blood 04/05/2024 10:0 6 AM CULINARY ART TEACHER 04/05/2024 10:18 AM CULINARY ART TEACHER Monico Santana MD LAB BLOOD ORDERABLES Final Resu lt Performing Organization Address City/[facility]/ZIP Co de Phone Number [facility] [address] [facility] [place] [address] * (ABNORMAL) Ferritin (04/05/2024 10:06 AM CULINARY ART TEACHER) Ferritin 13(L) 15 - 150 ng/mL Blood 04/05/2024 10:0 6 AM CULINARY ART TEACHER 04/05/2024 10:18 AM CULINARY ART TEACHER Monico Santana MD LAB BLOOD ORDERABLES Final Resu lt Performing Organization Address [facility] Co de Phone Number [facility] [address] Department of Last Size [place], [place] [id number] * eGFR (04/05/2024 9:59 AM CULINARY ART TEACHER) eGFR >90 >=60 mL/min/1. 73 m2 Comment: Interpretive Data Reference Interval Normal >/= 90 mL/min/1.73m2 Mildly decreased* 60 - 89 mL/min/1.73m2 Mildly to moderately decreased 45 - 59 mL/min/1.73m2 Moderately to severely decreased 30 - 44 mL/min/1.73m2 Severely decreased 15 - 29 mL/min/1.73m2 Kidney Failure < 15 mL/min/1.73m2 *Relative to young adult level Estimated glomerular filtration rate is determined by the 2020 CKD-EPI equation recommended by the National Kidney Foundation (A Unifying Approach to GFR Estimation: Recommendations of the NKF-ASK Task Force on Reassessing the Inclusion of Race in Diagnosing Kidney Disease, JASN 2020). The CKD-EPI equation should not be used for patients with unstable renal function and has not been validated in children and those over 70. Current interpretive data was last reviewed 2021. Blood 04/05/2024 9:59 AM CULINARY ART TEACHER 04/05/2024 2:53 PM CULINARY ART TEACHER Neelima LEROY LAB BLOOD ORDERABLES Final Result Performing Organization Address [facility]/ZIP Co de Phone Number [facility] [address] Department of Last Size [place], [place] [phone] * TSH (04/05/2024 9:59 AM CULINARY ART TEACHER) Pathologist [facility] Thyroid Stimulating Hormone 2.14 0.30 - 4.20 mcIUnit/mL Blood 04/05/2024 9:59 AM CULINARY ART TEACHER 04/05/2024 2:38 PM CULINARY ART TEACHER Neelima LEROY LAB BLOOD ORDERABLES Final Result Performing Organization Address [facility] Co de Phone Number [facility] [address] [facility] [place] [address] * Hemoglobin A1c (04/05/2024 9:59 AM CULINARY ART TEACHER) Pathologist [facility] Hgb A1C 5.5 4.0 - 5.6 % Estimated Average Glucose 111 mg/dL [facility] Comment: The ADA recommends reporting an estimated Average Glucose (eAG) with all Hemoglobin A1c results using the equation derived from a study of 507 normal and diabetic adults. Minority populations were underrepresented and children were not included. (Diabetes Care 31:8873-4425, 2008). The eAG is not equivalent to a fasting glucose. Blood 04/05/2024 9:59 AM CULINARY ART TEACHER 04/05/2024 2:38 PM CULINARY ART TEACHER Neelima LEROY LAB BLOOD ORDERABLES Final Result Performing Organization Address [facility] Co de Phone Number [facility] [address] [facility] [place] [address] * Vitamin B12 (04/05/2024 9:59 AM CULINARY ART TEACHER) [facility] Vitamin B12 365 230 - 1,250 pg/mL Blood 04/05/2024 9:59 AM CULINARY ART TEACHER 04/05/2024 2:38 PM CULINARY ART TEACHER Neelima LEROY LAB BLOOD ORDERABLES Final Result Performing Organization Address City/[facility] Co de Phone Number [facility] [address] [facility] [place] [address] * Lipid panel (04/05/2024 9:59 AM CULINARY ART TEACHER) [facility] Cholesterol 181 30 - 199 mg/dL Comment: Interpretive Data Ages < or = 19 years Acceptable: <170 mg/dL Borderline high: 170-199 mg/dL High: >or= 200 mg/dL Ages > or = 20 years Desirable: <200 mg/dL Borderline high: 200-239 mg/dL High: >or= 240 mg/dL Literature References: 1. Expert Panel on Integrated Guidelines for Cardiovascular Health and Risk Reduction in Children and Adolescents. Pediatrics 2011;128:S213 2. NCEP Expert Panel. Circulation 2004;110:227 Current Interpretive Data was last revised on 2017. Triglycerides 133 <=149 mg/dL [facility] Comment: Interpretive Data Ages < or = 9 years Acceptable: <75 mg/dL Borderline high: 75-99 mg/dL High: >or= 100 mg/dL Ages 10 to 20 years Acceptable: <90 mg/dL Borderline high: 90-129 mg/dL High: >or= 130 mg/dL Ages > or = 20 years Desirable: <150 mg/dL Borderline high: 150-199 mg/dL High: 200-499 mg/dL Very high: >or= 499 mg/dL Literature References: 1. Expert Panel on Integrated Guidelines for Cardiovascular Health and Risk Reduction in Children and Adolescents. Pediatrics 2011;128:S213 2. NCEP Expert Panel. Circulation 2004;110:227 Current Interpretive Data was last revised on 2017. HDL 44 >=40 mg/dL [facility] Comment: Interpretive Data Ages < or = 19 years Acceptable: >45 mg/dL Borderline low: 40-45 mg/dL Low: <40 mg/dL Ages > or = 20 years Desirable: >or= 60 mg/dL Low: <40 mg/dL Literature References: 1. Expert Panel on Integrated Guidelines for Cardiovascular Health and Risk Reduction in Children and Adolescents. Pediatrics 2011;128:S213 2. NCEP Expert Panel. Circulation 2004;110:227 Current Interpretive Data was last revised on 2017. LDL, calculated 113 <=129 mg/dL [facility] Comment: Interpretive Data Ages < or = 19 years Acceptable: <110 mg/dL Borderline high: 110-129 mg/dL High: >or= 130 mg/dL Ages > or = 20 years Optimal: <100 mg/dL Near optimal: 100-129 mg/dL Borderline high: 130-159 mg/dL High: >160 mg/dL Calculated using the Jericho LDL-C estimating equation. This equation was implemented on 2023. Prior to this date LDL-C was estimated using the Friedewald equation. Literature References: 1. Expert Panel on Integrated Guidelines for Cardiovascular Health and Risk Reduction in Children and Adolescents. Pediatrics 2011;128:S213 2. NCEP Expert Panel. Circulation 2004;110:227 3. Jericho Foy et al. RUTH ANN Cardiol. 2020 July 21;5(5):540-548. doi: 10.1001/[email or web address].2020.0013 Current Interpretive Data was last revised on 2023. Non-HDL Cholesterol 137 mg/dL [facility] Comment: Interpretive Data Ages < or = 19 years Acceptable: <120 mg/dL Borderline high: 120-144 mg/dL High: >145 mg/dL Ages > or = 20 years When triglycerides are >200 mg/dL, Non-HDL cholesterol is a secondary target of therapy with treatment goals that are 30 mg/dL greater than the LDL cholesterol target. Literature References: 1. Expert Panel on Integrated Guidelines for Cardiovascular Health and Risk Reduction in Children and Adolescents. Pediatrics 2011;128:S213 2. NCEP Expert Panel. Circulation 2004;110:227 Current Interpretive Data was last revised on 2017. Chol/HDL ratio [address] [facility] Blood 04/05/2024 9:59 AM CULINARY ART TEACHER 04/05/2024 2:38 PM CULINARY ART TEACHER Neelima LEROY LAB BLOOD ORDERABLES Final Result [facility] [address] Department [place] [address] * (ABNORMAL) Comprehensive metabolic panel (04/05/2024 9:59 AM CULINARY ART TEACHER) Sodium 136 135 - 145 mmol/L Potassium, pl 4.4 3.3 - 4.9 mmol/L [facility] Chloride 104 97 - 110 mmol/L [facility] CO2 18(L) 22 - 32 mmol/L [facility] Anion gap 14 2 - 15 mmol/L [facility] BUN 10 6 - 25 mg/dL [facility] Creatinine 0.74 0.60 - 1.10 mg/dL [facility] Glucose 88 70 - 199 mg/dL [facility] Comment: Interpretive Data Fasting glucose >/= 126 mg/dl is diagnostic for diabetes. Fasting is defined as no caloric intake for at least 8 hours. Fasting glucose between 100 mg/dl to 125 mg/dl is diagnostic of prediabetes. In a patient with classic symptoms of hyperglycemia or hyperglycemic crisis, a random glucose >/= 200 mg/dl is diagnostic for diabetes. In the absence of unequivocal hyperglycemia, results should be confirmed by repeat testing. The classification and Diagnosis of Diabetes Diabetes Care 202; 46: S19-S40. Current interpretive data was last revised 2022. Calcium 8.9 8.5 - 10.3 mg/dL [facility] Bilirubin, total 0.5 0.1 - 1.2 mg/dL [facility] Protein, pl 7.6 6.5 - 8.5 g/dL [facility] Albumin 3.9 3.5 - 5.0 g/dL [facility] Alk phos 117 40 - 130 Units/L [facility] ALT 10 7 - 45 Units/L [facility] AST 16 10 - 45 Units/L [facility] Blood 04/05/2024 9:59 AM CULINARY ART TEACHER 04/05/2024 2:38 PM CULINARY ART TEACHER Neelima LEROY LAB BLOOD ORDERABLES Final Result [facility] [address] Department [place] [address] * Albumin Creatinine Ratio, Urine (09/17/2023 7:21 PM CDT) Albumin Ur 18.5 mg/L Comment: Interpretive Data No reference range established. Current interpretive data was last revised 2018. Creatinine Ur 284.1 mg/dL [facility] Comment: Interpretive Data No reference range established. Current interpretive data was last revised 2018. Albumin Creatinine Ratio, Ur 7 1 - 29 mg/g [facility] Urine 09/17/2023 7:21 PM CDT 09/17/2023 7:21 PM CDT Neelima LEROY LAB URINE ORDERABLES Final Result [facility] [address] [place] [address] * Screening Mammogram Bilateral W Krunal (08/06/2023 8:20 AM CDT) Anatomical Region Laterality Modality Breast Bilateral Mammography 08/06/2023 9:55 AM CDT Impressions 08/06/2023 9:55 AM CDT No evidence of malignancy in either breast. FINAL ASSESSMENT: BI-RADS Category 2: Benign. RECOMMENDATION: Recommend return for annual screening mammogram in 12 months. Electronically signed by: MERARI HUSSEIN MD Narrative 08/06/2023 9:55 AM CDT EXAMINATION: BILATERAL SCREENING MAMMOGRAM COMPARISON: All prior mammograms dating back to 2016. TECHNIQUE: Full-field 2D and digital breast tomosynthesis (DBT) images were obtained. CAD was utilized. BREAST PARENCHYMAL COMPOSITION: There are scattered areas of fibroglandular density. FINDINGS: There is no suspicious mass, calcification, or distortion in either breast. Postoperative changes relating to bilateral reduction mammoplasty are again noted. Neelima LEROY IMG MAMMO PROCEDURES Final Result * HM COLONOSCOPY (08/15/2022) Historical Provider HEALTH MAINTENANCE Edited Result - Final * Hepatitis C antibody (05/13/2018 9:48 AM CULINARY ART TEACHER) Hep C Ab Nonreactive Nonreactive [facility] Comment: Interpretive Data Positive and greyzone results should be confirmed by a molecular method. If positive or greyzone, a second separately collected sample should be submitted for Hepatitis C Virus RNA. Detection and Quantitation by Real-Time Reverse Subcontracts Manager-PCR.Current Interpretive data was last revised on 2016. Blood specimen (specimen) 05/13/2018 9:48 AM CULINARY ART TEACHER 05/13/2018 1:26 PM CULINARY ART TEACHER Narrative [facility] - 05/13/2018 2:42 PM CULINARY ART TEACHER Ceci Murray MD LAB MICROBIOLOGY - GENERAL ORDERABLES Edited Result - Final [facility] Department [place] [address] from Last 3 Months or Most Recently Relevant to Health Maintenance Insurance [facility] [employer] Address: [facility] [address] [place] [address] [facility] [employer] Address: [facility] [id number] [place] [address] Advance Directives For more information, please contact: [phone] * Full Code (Latest Code Status on File) Date Activated Date Inactivated Comments 03/11/2019 10:28 AM 03/15/2019 5:38 PM * Full Code Date Activated Date Inactivated Comments 03/11/2019 5:15 AM 03/11/2019 10:28 AM Full CPR in case of cardiopulmonary arrest * Full Code Date Activated Date Inactivated Comments 07/13/2018 8:12 AM 07/14/2018 4:45 AM * Full Code Date Activated Date Inactivated Comments 12/16/2017 11:34 AM 12/16/2017 7:13 PM Care Teams Seat Nailer Relationship Specialty Start Date End Date Neelima Head PA [address] [facility] [address] [place] [address] PCP - General Family Medicine 05/03/24 Monico Santana MD Medical Oncologist/Final Inspector Movement [employer] Hematology and Oncology 07/29/22
--- OUTSIDE RECORDS SUMMARY | 2024-05-18 00:10 | XMS_ITS | Continuity of Care Document ---
Author Organization [facility] Address [address] [place] [address] Phone Care Team Providers Care Cryolite Recovery Operator Name Role Phone Norbert Matthews MD Unavailable Unavailable Allergies, Adverse Reactions, Alerts Substance Reaction Status Criticality DICLOFENAC SUBMICRONIZED Active No Information Medications Medication Instructions Dosage Effective Dates (start - stop) Status Comments ranitidine 150 mg capsule - Acti ve amlodipine 5 mg tablet - Active Bystolic 5 mg tablet - Active Lexapro 5 mg tablet - Active Procedures Procedure Date Office[facility]outpatient visit,[facility] 2016 Advance Directives Directive Yes / No Effective Date File Name No Information Encounters Encounter Description Practice Location Reason(s) For Visit Diagnoses Date Provider Providers Copied on Encounter Office/outpat ient visit,[facility], [address], [id number], tel:[phone] [facility] l ankle (chief complaint) Pain in left lower leg Byron Toussaint. [address] [facility], [address], [place], [place], [id number], [place]. tel:[phone] Family History Family Member Type Diagnosis Age At Onset No Information Payers Payer name Insurance type Covered republican ID Nicholea jenae(s) Ric Moore CI [id number] Social History Type Description Quantity Date Captured Comments Alcohol Use Details Unknown Caffeine Use Details Unknown Tobacco Use Status No Information Smoking Status Never smoker Non-Smoking Tobacco Use Details : No Details Available : No Details Available Sex Female Vital Signs Date / Time: Height Weight BMI Pulse Rate Blood Pressure Temperature Respiratory Rate Body Surface Area Head Circumference Head Circ. Percentile Wt./Zaid. Percentile BMI percentile Pulse Ox Inhaled Ox 2:46 PM 67.00 in 127.006 kg (280.00 lbs) 43.8 5 kg/m eter (2) Chief Complaint And Reason For Visit From encounter dated '09/09/2016 14:10'. l ankle (chief complaint). Description: patient presents to the office today in follow up left ankle Reason For Referral Reason For Referral No Information History Of Present Illness Encounter Date Complaint History Of Prese nt Illness l ankle patient presents to the office today in follow up left ankle Functional Status Date Functional Assessmen t No Information Instructions Date Instruction Additional Infor mation No Information Assessments Type Assessment Date assessment Pain in left lower leg 19 Patient Care Teams Name Effective Dates (start - stop) Status Members No Information
--- OUTSIDE RECORDS SUMMARY | 2024-05-18 00:10 | XMS_ITS | Referral Summary ---
Author Organization [facility] Address [address] [place] [address] Care Team Providers Care Hydrography Teacher Name Role Phone Monico Santana MD Unavailable [phone] Neelima Head Primary Care Provider Encounters Date Type Department Care Team Description 05/05/2024 7:30 AM METER SHOP SUPERVISOR Office Visit [facility] Family Medicine [address] [phone] Neelima Head PA Controlled type 2 diabetes mellitus without complication, without long-term current use of insulin (CMS/[facility]) ([facility]) (Primary Dx); Gastroesophageal reflux disease without esophagitis; B12 deficiency; Current severe episode of major depressive disorder without psychotic features without prior episode (CMS/HCC) (HCC); Abnormal uterine bleeding (AUB); Diabetes mellitus with coincident hypertension (HCC); LANIE on CPAP; Iron deficiency anemia, unspecified iron deficiency anemia type; Breast cancer screening by mammogram; Morbid obesity with BMI of 40.0-44.9, adult (HCC) 04/08/2024 8:30 AM METER SHOP SUPERVISOR Infusion [facility] [address] [place] [id number] Iron deficiency anemia, unspecified iron deficiency anemia type (Primary Dx) 04/05/2024 1:26 PM METER SHOP SUPERVISOR - 04/05/2024 11:59 PM METER SHOP SUPERVISOR Hospital Encounter [address] [phone] Controlled type 2 diabetes mellitus without complication, without long-term current use of insulin (CMS/HCC) (HCC); Fatigue, unspecified type Discharge Disposition: Discharge to home or self care 04/05/2024 Telephone [facility] [address] [place] [phone] Tiffanie Bledsoe, RN 04/05/2024 Orders Only [facility] [address] [place] [phone] Tiffanie Bledsoe, RN 04/05/2024 Orders Only [facility] Lab [address] [place] [phone] Monico Santana MD 04/05/2024 Orders Only [facility] [address] [place] [phone] Tiffanie Bledsoe, RN 04/05/2024 9:45 AM METER SHOP SUPERVISOR Lab [facility] [address] [place] [phone] Iron deficiency anemia, unspecified iron deficiency anemia type 04/05/2024 Orders Only [facility] [address] [place] [phone] Tiffanie Bledsoe, RN 04/05/2024 9:45 AM METER SHOP SUPERVISOR Infusion [facility] [address] [place] [phone] 04/05/2024 9:00 AM METER SHOP SUPERVISOR Office Visit [facility] [address] [place] [phone] Monico Santana MD Iron deficiency anemia, unspecified iron deficiency anemia type (Primary Dx) 03/28/2024 Orders Only [address] [place] [address] Neelima Head PA Controlled type 2 diabetes mellitus without complication, without long-term current use of insulin (CMS/HCC) (HCC) (Primary Dx); Fatigue, unspecified type 03/28/2024 Orders Only [address] [place] [address] Neelima Head PA 03/25/[address] [place] [address] Neelima Head PA Medical Question/Miscellaneo us from Last 3 Months Allergies Active Allergy Reactions Criticality Noted Date [...] (three) times a week 12 capsule 6 024 Active Additional Information Patient not taking.Reported on [...] total) by mouth nightly 90 tablet 2 025 Active buPROPion XL (WELLBUTRIN XL) 300 mg [...] nausea or vomiting 2024 Discontinued(R eorder) mv,Ca,min-iron bqnj-CQ-dsyzzd 1 mg iron-66.7 mcg-1,000 mcg tablet Take 1 each by mouth daily 2024 Discontinued vit [id number]-[id number] 27mg iron- 800 mcg-250 mg capsule Take [...] total) by mouth daily 60 tablet 3 11/29/2 023 2024 Discontinued(R eorder) escitalopram (LEXAPRO) 20 [...] 09/15/2023 Assessment & Plan (05/14/2024 11:47 PM METER SHOP SUPERVISOR): CPAP has been ordered but patient is [...] complication, without long-term current use of insulin ([facility]) 02/28/2023 Assessment & Plan (05/14/2024 11:46 PM METER SHOP SUPERVISOR): Stressed importance of continued A1c control to minimize the termite helper effects of diabetes. Bring accuchecks to office [...] of continued A1c control to minimize the halfway effects of diabetes. Bring accuchecks to office when instructed to do so. Check A1c about every 3-6 months. Take medication as prescribed. Get annual eye exam. Encouraged ABRAHAN/Statin if able to tolerate. Encouraged weight control and encouraged diabetic diet and exercise. Currently diet controlled Assessment & Plan (05/31/2023 5:52 PM CDT): Stressed importance of continued A1c control to minimize the termite helper effects of diabetes. Bring accuchecks to office when instructed to do so. Check A1c about every 3-6 months. Take medication as prescribed. Get annual eye exam. Encouraged ABRAHAN/Statin if able to tolerate. Encouraged weight control and encouraged diabetic diet and exercise. Continue diet controlled. Assessment & Plan (02/28/2023 6:56 PM METER SHOP SUPERVISOR): Stressed importance of continued A1c control to minimize the termite helper effects of diabetes. Bring accuchecks to office [...] 11/05/2022 Assessment & Plan (05/14/2024 11:44 PM METER SHOP SUPERVISOR): Continue PPI p.r.n. She states she really [...] 07/29/2022 Assessment & Plan (05/14/2024 11:43 PM METER SHOP SUPERVISOR): Supplement Assessment & Plan (05/31/2023 5:55 PM CDT): Continue supplementation Assessment & Plan (02/28/2023 6:49 PM METER SHOP SUPERVISOR): Supplement. Check labs Assessment & Plan (07/29/2022 10:32 PM CDT): Continue supplementation Seasonal allergies 07/29/2022 Assessment & Plan (07/29/2022 10:32 PM CDT): Patient has allergies are responding well with the Xyzal. Refills to pharmacy Breast cancer screening by mammogram 07/06/2022 Assessment & Plan (05/14/2024 11:43 PM METER SHOP SUPERVISOR): Mammogram order provided Assessment & Plan (05/31/2023 [...] re-evaluate Assessment & Plan (02/28/2023 6:49 PM METER SHOP SUPERVISOR): Probably multifactorial. Check labs and followup to re-evaluate Assessment & Plan (07/06/2022 9:41 AM CDT): Probably multifactorial. Check labs and followup to re-evaluate Assessment & Plan (11/03/2020 11:07 PM CDT): Probably multifactorial. Check labs and followup to re-evaluate Morbid obesity with BMI of 40.0-44.9, adult 10/21 Assessment & Plan (05/05/2024 7:47 AM METER SHOP SUPERVISOR): Discussed the patient's BMI. The BMI is [...] provided. Assessment & Plan (02/18/2023 8:36 AM METER SHOP SUPERVISOR): Discussed the patient's BMI. The BMI is [...] disorder without psychotic features without prior episode ([facility]) 03/21/2019 Assessment & Plan (05/14/2024 11:43 PM METER SHOP SUPERVISOR): Patient has severe depression symptoms. Continue Wellbutrin [...] start. Assessment & Plan (02/28/2023 6:49 PM METER SHOP SUPERVISOR): Stable with Wellbutrin XL 300 Lexapro 20. Discussed making changes to meds versus counseling and strongly encouraged counseling. Assessment & Plan (11/05/2022 8:03 AM CDT): Improvement with the Wellbutrin XL 300 Lexapro 20 but still feels down. Strongly encouraged counseling. Provided names of counselors through Psychology today. Encouraged her to call Niesha to get a list of counselors. Also [...] investigate. Assessment & Plan (05/27/2020 7:20 PM METER SHOP SUPERVISOR): Decrease Lexapro to 10mg and start Wellbutrin XL 150 Reviewed risks, benefit, alternatives, side effects and proper use. F.u in a few weeks to reassess. Call if has suicidal or homicidal thoughts. Still remain off work. Assessment & Plan (05/27/2020 1:01 PM METER SHOP SUPERVISOR): Significant depression/greif that makes it difficult to care for herself and her children. Recommend remain off work Increase Lexapro to 20mg. Take TWO 10mg tabs until gone then will send in new Rx for 20mg tabs. Continue counseling/EAP. Following in a few weeks to reasses. Denies suicidal or homicial thoughts. Assessment & Plan (05/08/2020 10:42 PM METER SHOP SUPERVISOR): Depression/grief. Continue counseling and support group. Continue lexapro 10mg. Increase the Wellbutrin to 300mg Call if has increased sxs/suicidal thoughts. Followup 6-8 weeks. Assessment & Plan (03/09/2020 11:07 PM METER SHOP SUPERVISOR): Patient is experiencing significant grief, depression and [...] have her off work for at least 1/ which is the date I will see [...] (04/19/2018): Added automatically from request for surgery [id number] Abnormal uterine bleeding (AUB) 10/23/2017 Overview (10/23/2017): Added automatically from request for surgery [id number] Assessment & Plan (05/14/2024 11:31 PM METER SHOP SUPERVISOR): Patient works with Dr. Amador for her menorrhagia. Planning D and C with ablation on June 14 Urge incontinence of urine 01/13/2017 Abnormal mammogram 10/30/2016 Iron deficiency anemia, unspecified 10/12/2015 Assessment & Plan (05/14/2024 11:31 PM METER SHOP SUPERVISOR): Patient with history of anemia. Is established with lynn Gage at [facility] She is planning D&C with ablation with supplemental nurse on June 14 Assessment & Plan (09/15/2023 [...] need to follow back up with her composition mixer for assistance as may be needing another iron infusion. Assessment & Plan (11/05/2022 8:06 AM CDT): Continue per Hematology. Assessment & Plan (03/09/2020 11:03 PM METER SHOP SUPERVISOR): Managed by ONC Dr. Krishnan Diabetes mellitus with coincident hypertension 0 10/12/2015 Assessment & Plan (05/14/2024 11:31 PM METER SHOP SUPERVISOR): Stressed importance of continued A1c control to minimize the halfway effects of diabetes. Bring accuchecks to office [...] of continued A1c control to minimize the halfway effects of diabetes. Bring accuchecks to office [...] 5 Assessment & Plan (02/28/2023 6:49 PM METER SHOP SUPERVISOR): Bp is stable/in acceptable range for any [...] 140 Assessment & Plan (05/27/2020 1:00 PM METER SHOP SUPERVISOR): Bp is stable/in acceptable range for any co-morbidities. Encouraged to limit sodium intake and exercise for weight control. Continue amlodipine 5mg Assessment & Plan (03/09/2020 11:03 PM METER SHOP SUPERVISOR): Bp is stable/in acceptable range for any [...] 024 Assessment & Plan (02/18/2023 8:37 AM METER SHOP SUPERVISOR): Discussed the patient's BMI. The BMI is [...] CDT): Check labs Acute frontal sinusitis 07/06/2022 050 11/2022 Overview (07/06/2022): Complete antibiotic therapy. Follow-up if symptoms do not fully resolve BMI 40.0-44.9, adult 10/30/2020 023 Assessment & Plan (11/03/2020 11:01 PM CDT): Obesity is unchanged. Discussed the patient's BMI. The BMI is above average. BMI management plan is completed. BMI Follow-up includes: nutrition counseling, exercise counseling and education provided. Other fatigue 03/09/2020 11/03/2020 BMI 40.0-44.9, adult ([facility]) 03/08/2020 05/05/2024 Assessment & Plan (05/05/2024 7:47 AM METER SHOP SUPERVISOR): Discussed the patient's BMI. The BMI is above average. BMI management plan is completed. BMI Follow-up includes: nutrition counseling, exercise counseling and education provided. Assessment & Plan (03/08/2020 10:33 AM METER SHOP SUPERVISOR): Obesity is unchanged. Discussed the patient's BMI. The BMI is above average. BMI management plan is completed. BMI Follow-up includes: nutrition counseling, exercise counseling and education provided. Morbid obesity 03/08/2020 09/15/2023 Positive depression screening 03/08/2020 11/03/2020 Assessment & Plan (03/09/2020 11:08 PM METER SHOP SUPERVISOR): See depression plan Normal labor 03/11/2019 03/21/2019 Overview (03/11/2019): [facility] Visit 03/11/19: Assessment and Plan Jeanine Moseley [...] care Lower extremity edema 03/07/20192018 Overview (03/07/2019): [facility] VISIT 03/07/2019: VSS. patient reports left lower [...] scheduled Assessment & Plan (03/04/2019 9:12 AM METER SHOP SUPERVISOR): Patient has not yet taken her BP medicine today. She denies symptoms of preE. Plans to take her BP meds when she gets back to her car and check her BP. She will call our nurse line if she has a mild range BP. Assessment & Plan (01/26/2019 10:02 AM METER SHOP SUPERVISOR): Bps well controlled at this time, precautions [...] closely. Assessment & Plan (02/11/2019 1:33 PM METER SHOP SUPERVISOR): Tearful today in clinic 2/2 frustration with [...] talk. Assessment & Plan (01/26/2019 10:01 AM METER SHOP SUPERVISOR): Symptoms well controlled Assessment & Plan (01/12/2019 [...] trimester 09/07/2018 03/21/2019 Overview (02/11/2019): [x] Full [facility] Care Referring Provider: Terri/RODGER [x] Dating Criteria: [...] (04/19/2018): Added automatically from request for surgery [id number] Uterine polyp 04/07/2018 09/08/2018 Overview (04/07/2018): Added automatically from request for surgery [id number] Need for prophylactic vaccin ation and inoculation against influenza 02/05/2018 09/08/2018 Morbid obesity with BMI of 4 0.0-44.9, adult ([facility]) 12/03/2017 10/30/2020 Assessment & Plan (05/27/2020 1:01 PM METER SHOP SUPERVISOR): Obesity is unchanged. Discussed the patient's BMI. The BMI is above average. BMI management plan is completed. BMI Follow-up includes: nutrition counseling, exercise counseling and education provided. Assessment & Plan (03/08/2020 10:34 AM METER SHOP SUPERVISOR): Obesity is unchanged. Discussed the patient's BMI. The BMI is above average. BMI management plan is completed. BMI Follow-up includes: nutrition counseling, exercise counseling and education provided. Uterine leiomyoma 10/23/2017 09/08/2018 Overview (10/23/2017): Added automatically from request for surgery [id number] Investigation and testing fo r procreation management [...] 07/29/2013 019 Unspecified urinary incontinence 07/29/2013 12/03/2017 Immunizations Immunization Administration Dates Next Due DTaP 10/14/1982, 0,07/21/1978,01/21,1977 Influenza, Quadrivalent, Wendy l Culture-based MDCK, Antibiotic Free, Intramuscular 12/15/2018 Influenza, Quadrivalent, Spl it, Preservative Free, Intramuscular 01/02/2023,01/26/2020,02/05/2018 Influenza, Trivalent, Preser vative Free, Intramuscular 01/28/2024 Influenza, Unspecified 01/08/2023,01/09/2022 MMR 10/13/1979 MMRV 09/08/2011 OPV 10/14/1982, 0,07/21/1978,01/21,1977 Pfizer SARS-CoV-2 Monovalent Vaccination (12+ Yrs) PURPLE 07/24/2020,07/03/2020 Tdap 01/12/2019 Social History Tobacco Use Types Packs/Day Years [...] staff should administer the PHQ-9) 0 05/05/2024 [place] Depression Scale Answer Date Recorded [place] Depression Scale Total 1 04/21/2019 The thought of harming myself has occurred to me . Never 04/21/2019 Comments Unknown Sex and Gender Information Value Date Recorded Sex Assigned at Female 09/24/2022 11:57 AM CDT Legal Sex Female 9:26 AM METER SHOP SUPERVISOR Gender Identity Female 09/24/2022 11:57 AM CDT Sexual Orientation Not on file Occupation Industry Job Start Date Job End Date [employer] Not on file Not on file Not on f ile Last Filed Vital Signs Vital Sign Reading Time Taken Comments Blood Pressure 136/86 05/05/2024 8:35 AM METER SHOP SUPERVISOR Pulse 74 05/05/2024 7:44 AM METER SHOP SUPERVISOR Temperature 36.8 C (98.2 F) 05/05/2024 7:44 AM METER SHOP SUPERVISOR Respiratory Rate 16 04/08/2024 9:08 AM METER SHOP SUPERVISOR Oxygen Saturation 99% 05/05/2024 7:44 AM METER SHOP SUPERVISOR Inhaled Oxygen Concentration - - Weight 120.8 kg (266 lb 6.4 oz) 05/05/2024 7:44 AM METER SHOP SUPERVISOR Height 168.5 cm (5' 6.34 ) 04/05/2024 9:43 AM CS T Body Mass Index 42.56 04/05/2024 9:43 AM METER SHOP SUPERVISOR Plan of Treatment Not on file Medical Devices Implanted Type Area Safety Relief Valve Technician Device Identifier Shelf Expiration Date Model / Serial / Lot [employer] 4350 Gynecare Interceed 4x3in Absorbable Control Beyond Closure Pelvic - [id number] Implanted:Qty: 1 on 12/16/2017 by Celestino Bright MD at [facility] N/A: Pelvis [employer] [id number] 02/19/2022 [id number] / / [id number] [employer] [facility] 4350 Gynecare Interceed 4x3in Absorbable Control Beyond Closure Pelvic - [id number] Implanted:Qty: 1 on 12/16/2017 by Celestino Bright MD at [facility] N/A: Pelvis [employer] [id number] 02/19/2022 [id number] / / [id number] Procedures Procedure Name Priority Date/Time Associated Diagnosis Comments DIFFERENTIAL AUTO Routine 04/05/2024 10: 06 AM METER SHOP SUPERVISOR Iron deficiency anemia, unspecified iron deficiency anemia type VITAMIN D 25 HYDROXY Routine 04/05/2024 10:06 AM METER SHOP SUPERVISOR Iron deficiency anemia, unspecified iron deficiency anemia type FERRITIN Routine 04/05/2024 10:06 AM METER SHOP SUPERVISOR Iron deficiency anemia, unspecified iron deficiency anemia type IRON PROFILE W/ IBC Routine 04/05/2024 1 0:06 AM METER SHOP SUPERVISOR Iron deficiency anemia, unspecified iron deficiency anemia type CBC WITH AUTO DIFFERENTIAL Routine 04/05/2024 10:06 AM METER SHOP SUPERVISOR Iron deficiency anemia, unspecified iron deficiency anemia type EGFR Routine 04/05/2024 9:59 AM METER SHOP SUPERVISOR Controlled type 2 diabetes mellitus without complication, without long-term current use of insulin (CMS/HCC) ([facility]) HEMOGLOBIN A1C Routine 04/05/2024 9:59 AM METER SHOP SUPERVISOR Controlled type 2 diabetes mellitus without complication, without long-term current use of insulin (CMS/HCC) ([facility]) VITAMIN B12 Routine 04/05/2024 9:59 AM METER SHOP SUPERVISOR Controlled type 2 diabetes mellitus without complication, without long-term current use of insulin (CMS/HCC) ([facility]) LIPID PANEL Routine 04/05/2024 9:59 AM METER SHOP SUPERVISOR Controlled type 2 diabetes mellitus without complication, without long-term current use of insulin (CMS/HCC) (HCC) TSH Routine 04/05/2024 9:59 AM METER SHOP SUPERVISOR Fatigue, unspecified type COMPREHENSIVE METABOLIC PANEL Routine 04/05/2024 9:59 AM METER SHOP SUPERVISOR Controlled type 2 diabetes mellitus without complication, without long-term current use of insulin (CMS/HCC) (HCC) ALBUMIN CREATININE RATIO, URINE Routine 09/17/2023 7:21 PM CDT Diabetes mellitus with coincident hypertension (HCC) SCREENING MAMMOGRAM BILATERAL W KRUNAL Schedule Routine, Read Routine (OP Routine) 08/06/2023 8:20 AM CDT Breast cancer screening by mammogram HM COLONOSCOPY Routine 08/15/2022 HEPATITIS C ANTIBODY Routine 05/13/2018 9:48 AM METER SHOP SUPERVISOR Screening examination for venereal disease from Last 3 Months or Most Recently Relevant to Health Maintenance Results * Differential, auto (04/05/2024 10:06 AM METER SHOP SUPERVISOR) Neutrophil abs 4.5 1.5 - 6.5 K/cumm Imm gran abs 0.0 0.0 - 0.1 K/cumm [facility] Lymphocyte abs 1.8 0.8 - 3.3 K/cumm [facility] Monocyte abs 0.6 0.2 - 0.8 K/cumm [facility] Eosinophil abs 0.2 0.0 - 0.5 K/cumm [facility] Basophil abs 0.1 0.0 - 0.1 K/cumm [facility] Neutrophil pct 62.1 % [facility] Comment: Interpretive Data Percent cell count reference ranges are not reported, since discordance with absolute values may lead to misinterpretation of CBC data. Current Interpretive Data was last revised on 2017. Imm gran pct 0.4 % [facility] Comment: Interpretive Data Percent cell count reference ranges are not reported, since discordance with absolute values may lead to misinterpretation of CBC data. Current Interpretive Data was last revised on 2017. Lymphocyte pct 25.1 % [facility] Comment: Interpretive Data Percent cell count reference ranges are not reported, since discordance with absolute values may lead to misinterpretation of CBC data. Current Interpretive Data was last revised on 2017. Monocyte pct 8.9 % [facility] Comment: Interpretive Data Percent cell count reference ranges are not reported, since discordance with absolute values may lead to misinterpretation of CBC data. Current Interpretive Data was last revised on 2017. Eosinophil pct 2.8 % [facility] Comment: Interpretive Data Percent cell count reference ranges are not reported, since discordance with absolute values may lead to misinterpretation of CBC data. Current Interpretive Data was last revised on 2017. Basophil pct 0.7 % [facility] Comment: Interpretive Data Percent cell count reference ranges are not reported, since discordance with absolute values may lead to misinterpretation of CBC data. Current Interpretive Data was last revised on 2017. Blood 04/05/2024 10:0 6 AM METER SHOP SUPERVISOR 04/05/2024 10:06 AM METER SHOP SUPERVISOR Monico Santana MD LAB BLOOD ORDERABLES Final Resu lt [facility] [address] [employer] [place], [place] [id number] * (ABNORMAL) Iron profile w/ IBC (04/05/2024 10:06 AM METER SHOP SUPERVISOR) Iron 22(L) 35 - 145 mcg/dL TIBC 366 250 - 400 mcg/dL [facility] Transferrin saturation 6(L) 20 - 50 % [facility] Blood 04/05/2024 10:0 6 AM METER SHOP SUPERVISOR 04/05/2024 10:18 AM METER SHOP SUPERVISOR Monico Santana MD LAB BLOOD ORDERABLES Final Resu lt [facility] [address] [place] [address] * (ABNORMAL) CBC with auto differential (04/05/2024 10:06 AM METER SHOP SUPERVISOR) [facility] WBC 7.2 3.8 - 9.9 K/cumm Hgb 8.0(L) 11.9 - 15.5 g/dL [facility] Hct 27.7(L) 35.6 - 45.5 % [facility] Plt 220 150 - 400 K/cumm [facility] MPV 9.3 9.1 - 12.3 fL [facility] RBC 4.08 3.90 - 5.20 M/cumm [facility] MCV 67.9(L) 81.3 - 96.4 fL [facility] MCH 19.6(L) 27.1 - 33.3 pg [facility] MCHC 28.9(L) 32.3 - 35.7 g/dL [facility] RDW CV 19.9(H) 11.1 - 14.9 % [facility] RDW SD 47.9 35.7 - 48.1 fL [facility] NRBC abs 0.00 0.00 - 0.01 K/cumm [facility] Blood 04/05/2024 10:0 6 AM METER SHOP SUPERVISOR 04/05/2024 10:06 AM METER SHOP SUPERVISOR Monico Santana MD LAB BLOOD ORDERABLES Final Resu lt Performing Organization Address City/[facility]/ZIP Co de Phone Number [facility] [address] [facility] [place] [address] * (ABNORMAL) Vitamin D 25 hydroxy (04/05/2024 10:06 AM METER SHOP SUPERVISOR) [facility] Vitamin D 25-OH 23(L) 30 - 80 ng/mL Blood 04/05/2024 10:0 6 AM METER SHOP SUPERVISOR 04/05/2024 10:18 AM METER SHOP SUPERVISOR Monico Santana MD LAB BLOOD ORDERABLES Final Resu lt [facility] [address] [place] [address] * (ABNORMAL) Ferritin (04/05/2024 10:06 AM METER SHOP SUPERVISOR) Ferritin 13(L) 15 - 150 ng/mL Blood 04/05/2024 10:0 6 AM METER SHOP SUPERVISOR 04/05/2024 10:18 AM METER SHOP SUPERVISOR Monico Santana MD LAB BLOOD ORDERABLES Final Resu lt Performing Organization Address City/[facility]/ZIP Co de Phone Number [facility] [address] [place] [address] * eGFR (04/05/2024 9:59 AM METER SHOP SUPERVISOR) eGFR >90 >=60 mL/min/1. 73 m2 Comment: [...] last reviewed 2021. Blood 04/05/2024 9:59 AM METER SHOP SUPERVISOR 04/05/2024 2:53 PM METER SHOP SUPERVISOR Neelima LEROY LAB BLOOD ORDERABLES Final Result [facility] [address] [facility] [place] [address] * TSH (04/05/2024 9:59 AM METER SHOP SUPERVISOR) Thyroid Stimulating Hormone 2.14 0.30 - 4.20 mcIUnit/mL Blood 04/05/2024 9:59 AM METER SHOP SUPERVISOR 04/05/2024 2:38 PM METER SHOP SUPERVISOR Neelima LEROY LAB BLOOD ORDERABLES Final Result Performing Organization Address [facility] de Phone Number [facility] [address] [facility] [place] [address] * Hemoglobin A1c (04/05/2024 9:59 AM METER SHOP SUPERVISOR) [facility] Hgb A1C 5.5 4.0 - 5.6 % Estimated Average Glucose 111 mg/dL [facility] Comment: The ADA recommends reporting an estimated Average Glucose (eAG) with all Hemoglobin A1c results using the equation derived from a study of 507 normal and diabetic adults. Minority populations were underrepresented and children were not included. (Diabetes Care 31:9618-1751, 2008). The eAG is not equivalent to a fasting glucose. Blood 04/05/2024 9:59 AM METER SHOP SUPERVISOR 04/05/2024 2:38 PM METER SHOP SUPERVISOR Neelima LEROY LAB BLOOD ORDERABLES Final Result Performing Organization Address [facility] de Phone Number [facility] [address] [facility] [place] [address] * Vitamin B12 (04/05/2024 9:59 AM METER SHOP SUPERVISOR) Pathologist [facility] Vitamin B12 365 230 - 1,250 pg/mL Blood 04/05/2024 9:59 AM METER SHOP SUPERVISOR 04/05/2024 2:38 PM METER SHOP SUPERVISOR Result [facility] Neelima LEROY LAB BLOOD ORDERABLES Final Result Performing Organization Address [facility] Co de Phone Number [facility] [address] Department [place] [address] * Lipid panel (04/05/2024 9:59 AM METER SHOP SUPERVISOR) Cholesterol 181 30 - 199 mg/dL Comment: [...] revised on 2017. Triglycerides 133 <=149 mg/dL [facility] Comment: Interpretive Data Ages < or = [...] revised on 2017. HDL 44 >=40 mg/dL [facility] Comment: Interpretive Data Ages < or = [...] on 2017. LDL, calculated 113 <=129 mg/dL [facility] Comment: Interpretive Data Ages < or = [...] revised on 2023. Non-HDL Cholesterol 137 mg/dL [facility] Comment: Interpretive Data Ages < or = [...] last revised on 2017. Chol/HDL ratio 4 [facility] Blood 04/05/2024 9:59 AM METER SHOP SUPERVISOR 04/05/2024 2:38 PM METER SHOP SUPERVISOR us Neelima LEROY LAB BLOOD ORDERABLES Final Result [facility] [address] Department of [place] [address] * (ABNORMAL) Comprehensive metabolic panel (04/05/2024 9:59 AM METER SHOP SUPERVISOR) Sodium 136 135 - 145 mmol/L Potassium, pl 4.4 3.3 - 4.9 mmol/L [facility] Chloride 104 97 - 110 mmol/L [facility] CO2 18(L) 22 - 32 mmol/L [facility] Anion gap 14 2 - 15 mmol/L [facility] BUN 10 6 - 25 mg/dL [facility] Creatinine 0.74 0.60 - 1.10 mg/dL [facility] Glucose 88 70 - 199 mg/dL [facility] Comment: Interpretive Data Fasting glucose >/= 126 [...] 2022. Calcium 8.9 8.5 - 10.3 mg/dL [facility] Bilirubin, total 0.5 0.1 - 1.2 mg/dL [facility] Protein, pl 7.6 6.5 - 8.5 g/dL [facility] Albumin 3.9 3.5 - 5.0 g/dL [facility] Alk phos 117 40 - 130 Units/L [facility] ALT 10 7 - 45 Units/L [facility] AST 16 10 - 45 Units/L [facility] Blood 04/05/2024 9:59 AM METER SHOP SUPERVISOR 04/05/2024 2:38 PM METER SHOP SUPERVISOR Neelima LEROY LAB BLOOD ORDERABLES Final Result [facility] [address] Department [place] [address] * Albumin Creatinine Ratio, Urine (09/17/2023 7:21 PM CDT) Albumin Ur 18.5 mg/L Comment: Interpretive Data No reference range established. Current interpretive data was last revised 2018. Creatinine Ur 284.1 mg/dL [facility] Comment: Interpretive Data No reference range established. Current interpretive data was last revised 2018. Albumin Creatinine Ratio, Ur 7 1 - 29 mg/g [facility] Urine 09/17/2023 7:21 PM CDT 09/17/2023 7:21 PM CDT Neelima LEROY LAB URINE ORDERABLES Final Result [facility] [address] Department [place] [address] * Screening Mammogram Bilateral W Krunal (08/06/2023 [...] COMPARISON: All prior mammograms dating back to 2017. TECHNIQUE: Full-field 2D and digital breast tomosynthesis [...] * Hepatitis C antibody (05/13/2018 9:48 AM METER SHOP SUPERVISOR) Hep C Ab Nonreactive Nonreactive [facility] Comment: Interpretive Data Positive and greyzone results should be confirmed by a molecular method. If positive or greyzone, a second separately collected sample should be submitted for Hepatitis C Virus RNA. Detection and Quantitation by Real-Time Reverse Paid Search Analyst-PCR.Current Interpretive data was last revised on 2016. Blood specimen (specimen) 05/13/2018 9:48 AM METER SHOP SUPERVISOR 05/13/2018 1:26 PM METER SHOP SUPERVISOR Narrative [facility] - 05/13/2018 2:42 PM METER SHOP SUPERVISOR us Ceci Murray MD LAB MICROBIOLOGY - GENERAL ORDERABLES Edited Result - Final [facility] [place] [address] from Last 3 Months or Most Recently Relevant to Health Maintenance Insurance [facility] [employer] Address: [facility] [id number] [place] [id number] [facility] [employer] Address: [facility] [id number] [place] [address] Advance Directives For more information, please contact: [phone] * Full Code (Latest Code Status on [...] 11:34 AM 12/16/2017 7:13 PM Care Teams Hydrography Teacher Relationship Specialty Start Date End Date Neelima Head PA [address] [place] [address] PCP - General Family Medicine 05/03/24 Monico Santana MD Medical Oncologist/Supervisor [facility] 07/29/22
--- OUTSIDE RECORDS SUMMARY | 2024-05-18 00:10 | XMS_ITS | Encounter Summary ---
Author Organization [facility] Healthcare Address [address] [place] [address] Care Team Providers Care Pest Control Worker Helper Name Role Phone Neelima Head Primary Care Provider [phone] Monico Santana MD Unavailable [phone] Neelima Head Primary Care Provider [phone] Encounter Details Date Type Department Care Team (Late st Contact Info) Description 01/18/2024 Orders Only [facility] Health Information Management [address] [place] [address] Scanning, Provider Social History Tobacco Use Types Packs/Day Years Used Date Smoking Tobacco: Never Smokeless Tobacco: Never Alcohol Use Standard Drinks/Week Comments Not Currently 0 (1 standard drink = 0.6 oz pur e alcohol) rarely AUDIT-C Answer Date Recorded Q1: How often do you have a drink containing alc ohol? Never 05/14/2023 Average Number of Drinks Not on file 024 Q3: How often do you have si x or more drinks on one occasion? Never 05/14/2023 PHQ-2 Answer Date Recorded PHQ-2 Total Score 0 09/15/2023 [place] Depression Scale Answer Date Recorded [place] Depression Scale Total 1 04/21/2019 The thought of harming myself has occurred to me . 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 Not on file Not on file Not on f ile documented as of this encounter Plan of Treatment Not on file documented as of this encounter Procedures Procedure Name Priority Date/Time Associated Diagnosis Comments SCAN - RADIOLOGY/IMAGING 01/18/2024 documented in this encounter Results * SCAN - RADIOLOGY/IMAGING (01/18/2024) Anatomical Region Laterality Modality Other us Provider Scanning Final Result documented in this encounter Visit Diagnoses Not on filedocumented in this encounter Care Teams Pest Control Worker Helper Relationship Specialty Start Date End Date Neelima Head PA [address] [place] [address] PCP - General Internal Medicine 03/05/20 04/04/24 Neelima Head PA [address] [place] [address] PCP - General Family Medicine 05/03/24 Monico Santana MD [address] [place] [address] Medical Oncologist/Blocking Machine Operator [facility] H[facility]ology and Oncology 07/29/22 documented as of this encounter
--- OUTSIDE RECORDS SUMMARY | 2024-05-18 00:10 | XMS_ITS | Encounter Summary ---
Author Organization [facility] Healthcare Address [address] [place] [address] Care Team Providers Care Feed Mill Operator Name Role Phone Rah Novoa MD Primary Care Provider Carolina Chowdhury NP Unavailable [phone] Neelima Head Primary Care Provider [phone] Monico Santana MD Unavailable [phone] Neelima Head Primary Care Provider [phone] Encounter Details Date Type Department Care Team (Late st Contact Info) Description 06/08/2019 Documentation [facility] [address] [place] [address] Key Chicas RN Social History Tobacco Use Types Packs/Day Years Used Date Smoking Tobacco: Never Smokeless Tobacco: Never Alcohol Use Standard Drinks/Week Comments Not Currently 0 (1 standard drink = 0.6 oz pur e alcohol) rarely [place] Depression Scale Answer Date Recorded [place] Depression Scale Total 1 04/21/2019 The thought of harming myself has occurred to me . Never 04/21/2019 Comments No Sex and Gender Information Value Date Recorded Sex Assigned at Female 09/24/2022 11:57 AM CDT Legal Sex Female 9:26 AM HEALTH PROMOTION OFFICER Gender Identity Female 09/24/2022 11:57 AM CDT Sexual Orientation Not on file documented as of this encounter Miscellaneous Notes * Note - Key Chicas RN - 06/08/2019 10:32 AM CDT Mother called with concerns of breast feeding. Twins delivered in February at 36 weeks. Mother reports that baby boy would latch on but baby girl would not. Mother is pumping every 3-4 hours with a Motif breast pump but unsure of volume. Mother is wanting OP . OT feeding clinic phone number given. documented in this encounter Plan of Treatment Not on file documented as of this encounter Visit Diagnoses Not on filedocumented in this encounter Care Teams Feed Mill Operator Relationship Specialty [place] [address] [place] [address] PCP - General 06/23/16 03/04/20 Neelima Head PA [address] [place] [address] PCP - General Internal Medicine 03/05/20 04/04/24 Neelima Head PA [address] [place] [address] PCP - General Family Medicine 05/03/24 Carolina Chowdhury NP [address] [facility] [id number] [place] [address] Nurse Practitioner Nurse Practitioner 10/26/18 0 Monico Santana MD [address] [place] [address] Medical Oncologist/Social Work Nurse Hematology and Oncology 07/29/22 documented as of this encounter
[2024-05-18 07:00] VITALS: BP 167/100; PULSE 83; RESP 16; TEMP 36.2; O2SAT 100
--- NOTE | 2024-05-18 07:11 | WPDHPUPDATE1 ---
History and Physical Update Update Date/Time: 05/18/24 07:11 History and Physical has been reviewed, including an updated exam of the patient. There are NO changes in the patient's condition. Risks, benefits, and alternatives have been discussed and questions answered. Patient agrees to proceed with procedure.
[2024-05-18] MEDS: LACTATED RINGERS 1,000 ML 30 ML IV CONT (07:45)
[2024-05-18] MEDS: ACETAMINOPHEN 500 MG TABLET 1000 MG PO (07:58)
[2024-05-18 08:03] LABS: Hematocrit 37.1 % (37.0-47.0); Hemoglobin 11.2 g/dL (12.0-15.0)
--- NOTE | 2024-05-18 08:05 | P.PNAN_ITS ---
Anes - Initial Pre Proc Eval Procedure: Operation Date: 05/18/24 08:15 Proposed Procedures p Hysteroscopy Dilation and Curettage Zonia Endometrial Ablation - Rogerio Chávez MD Date/Time: 05/18/24 08:05 Surgeon: Rogerio Chávez MD Pre Op Diagnosis: MENORRHAGIA Patient Data Age: 48 Gender: F Height: 1.7 m Weight: 120.66 kg Allergies Allergy/AdvReac Type Severity Reaction Status Date / Time diclofenac Allergy Unknown Unknown Verified 05/09/24 08:31 tioconazole Allergy Unknown Unknown Verified 05/09/24 08:31 tomato Allergy Unknown Unknown Verified 05/09/24 08:31 miconazole AdvReac Unknown UNKNOWN Verified 05/09/24 08:31 Home Medications ?Medication ?Instructions ?Recorded ?Confirmed ?Type diyjdnp-yhjljjfjdyitk-xyaemceg 250 1 tablet PO Q4-6H PRN migraines 06/12/22 05/09/24 History mg-250 mg-65 mg tablet (Excedrin Migraine) escitalopram oxalate 10 mg tablet 10 mg PO HS 06/12/22 05/09/24 History fluticasone propionate 50 1 spray intranasal DAILY PRN 06/12/22 05/09/24 History mcg/actuation nasal allergy symptoms spray,suspension (Allergy Relief (fluticasone)) levocetirizine 5 mg tablet 5 mg PO DAILY PRN allergy symptoms 06/12/22 05/09/24 History omeprazole 10 mg capsule,delayed 10 mg PO DAILY PRN indigestion 06/12/22 05/09/24 History release triamcinolone acetonide 0.5 % 1 applic topical DAILY PRN eczema 06/12/22 05/09/24 History topical cream vitamin B12 2,500 mcg-folic acid 1 tablet PO DAILY 06/12/22 05/09/24 History 400 mcg disintegrating tablet amlodipine 5 mg tablet 5 mg PO DAILY 07/29/22 05/09/24 History bupropion HCl 150 mg 24 hr tablet, 300 mg PO DAILY 07/29/22 05/09/24 History extended release cholecalciferol (vitamin D3) 50 50 mcg PO DAILY 05/05/24 05/09/24 History mcg (2,000 unit) capsule fluconazole 150 mg tablet 150 mg PO ONCE #1 tablet 05/05/24 05/09/24 Rx metronidazole 500 mg tablet 500 mg PO Q12H #14 tabs 05/05/24 05/09/24 Rx iron bis glycinate tim 28 mg 1 cap PO DAILY 05/09/24 05/09/24 History iron-vit C 60 mg-FA 400 mcg-B12 8mcg cap (Gentle Iron) Laboratory Tests 05/18/24 07:46 Hgb Pending Hct Pending Patient hx anesthesia problems: none Family hx anesthesia problems: none Results Review: All pre-operative results and documents have been reviewed as part of the pre-operative evaluation. PMFSH Past Medical History Medical History Hypertension Depression Surgical History Surgical History History of section S/P bilateral breast reduction Family History Family History Mother Hypertension Family history of elevated blood lipids Social History Social History Smoking status: Never smoker Second hand tobacco smoke exposure: No Alcohol intake: never Substance use: never Substance use type: does not use Lack of Transportation: No Lack of Food: Sometimes True Current Housing: I Do Not Have Housing Concerned About Future Housing: No Difficulty Paying Gas/Electric Bills: No Difficulty Paying for Meds: No Currently Unemployed: No Education: High School Diploma/GED Difficulty w/ Childcare or Family Care: No Living arrangements: with family Spiritual care concerns: No Anes - Eval Final PreProcedure Day of Procedure 05/18/24 08:05 Patient weight: obese Lungs: normal air movement Airway: Mallampati scale class II Neurological: alert and oriented Last oral intake: >/= 8 hours ASA classification: III Emergent: no Anesthetic plan: proceed Anesthesia type and monitoring: general GIVS and standard monitoring Results Review: All pre-operative results and documents have been reviewed as part of the pre- operative evaluation. HTN, BMI 41, LANIE but noncompliant w CPAP. Informed Consent: The patient's anesthetic plan and its attendant risks and benefits were discussed with the patient/family/POA. Questions were solicited and answers provided to the satisfaction of the patient/family/POA.
[2024-05-18] MEDS: LIDOCAINE 1% LOCAL INJ 10 ML VIAL INFILTRATE (08:55)
[2024-05-18] MEDS: ceFAZolin SODIUM 1 GM VIAL 2 GM IV PUSH (08:57)
[2024-05-18 09:06] LABS: BEDSIDEPREGUCG Negative (Negative)
[2024-05-18] MEDS: KETOROLAC 30 MG/ML VIAL (*BKC) IV PUSH (09:07)
[2024-05-18 09:15] VITALS: BP 139/80; PULSE 94; RESP 16; O2SAT 100
--- NOTE | 2024-05-18 09:25 | W.PM.PROC2 ---
Procedure Note - Detailed Date of Procedure 05/18/24 Pre-op Diagnosis MENORRHAGIA Post-op Diagnosis Same Procedure Performed Hysteroscopy with dilation and curettage and removal of endometrial lesion. Attempted Zonia endometrial ablation. Surgeon Rogerio Chávez MD Anesthesia MAC and Local Indications Heavy periods and anemia Findings Uterus sound to 10 cm, cervical length 6cm, uterine cavity with polyp near left upper cornu. The uterine cavity appeared attenuated, on the right side, could see the right ostio. The zonia device would not deploy out of the red when deployed, and would not allow to proceed with ablation. This most likely due to the narrowing of the cavity on the right. Description of Procedure After informed consent was obtained patient was taken to the operating room and adequate IV sedation was administered. Attention was turned to the vagina. Speculum was inserted. Single-tooth tenaculum placed on the anterior lip of the cervix. 1% lidocaine injected at cervical vaginal interface at the 2,5, 8, 10 position. Total of 10cc. The uterus was sounded to 10cm. The cervix was dilated to an 8 Alonso dilator. The cervical length was 6cm. The cavity length 4cm. The hysteroscope was inserted into the cavity. The findings were per above. The Aveta instrument was used to remove the polyp. The cavity was normal appearing after this. Curettage performed. The Zonia ablation instrument was inserted into the cavity. With deployment the marker did not get out of red x2. Hysteroscope was inserted again. No perforation noted. The hysteroscope was removed the single-tooth tenaculum was removed hemostasis was noted at the tenaculum site. Sponge count correct. The patient taken to recovery in stable condition. Estimated Blood Loss 5 Drains No Packing No Pathology Yes (Shavings and curettings) Complications No immediate complications Condition Stable Disposition Same day [facility] Billing Surgery - Charge Forward: Surgery Billing
[2024-05-18 09:45] VITALS: BP 147/94; PULSE 87
[2024-05-18 10:15] VITALS: BP 142/87; PULSE 71
[2024-05-18 10:30] VITALS: BP 141/84; PULSE 70
== END 2024-05-18 10:40 | disposition home or self-care (01) ==
PROVIDERS: PCP Physician Assistant; Visit Provider Obstetrics & Gynecology
PROC: 0U5B8ZZ Destruction of Endometrium, Via Natural or Artificial Opening Endoscopic (ICD-10-PCS; CPT 58563; principal; 2024-05-18 08:15)
DX: N92.0 Excessive and frequent menstruation with regular cycle (principal); N84.0 Polyp of corpus uteri; I10 Essential (primary) hypertension; F32.A Depression, unspecified; Z53.8 Procedure and treatment not carried out for other reasons; E66.9 Obesity, unspecified; Z68.41 Body mass index [BMI] 40.0-44.9, adult; Z79.82 Long term (current) use of aspirin; Z98.890 Other specified postprocedural states
CPT/HCPCS: 58563; 36415; 85014; 85018; 88305; A9270; J0690; J1100; J1885; J2003; J2250; J2405; J2704; J3010; J7120